=== PATIENT | female | born 1990 | race American Indian/Alaskan Native ===

== ENCOUNTER 2016-07-25 10:01 | Inpatient (IN) | payer BC, MEDICAID, OTHER ==
[2016-07-25] MEDS: Lactated Ringers 1,000 ML IV SCH ×2 (13:15→14:16)
[2016-07-25] MEDS ORDERED: Sodium Chloride 0.9% 10 ML Syringe FLUSH PRN (13:21)
[2016-07-25] MEDS ORDERED: Bupivacaine 0.75%/D5W 2 ML Amp INJECT ONE (13:25)
[2016-07-25] MEDS ORDERED: Morphine PF 10 MG/10 ML SDV EPIDUR ONE (13:25)
[2016-07-25] MEDS ORDERED: fentaNYL 100 MCG/2 ML SDV EPIDUR ONE (13:25)
[2016-07-25] MEDS ORDERED: Naltrexone 50 MG Tab PO PRN (13:51)
[2016-07-25] MEDS ORDERED: Famotidine/Normal Saline 20 MG in Premix Bag 50 BAG IV PRN (13:51)
[2016-07-25] MEDS ORDERED: Nalbuphine 10 MG/1 ML Vial IVPUSH PRN (13:51)
[2016-07-25] MEDS ORDERED: diphenhydrAMINE 50 MG/ML SDV IV PRN (13:51)
[2016-07-25] MEDS ORDERED: Promethazine 12.5 MG in Sodium Chloride 0.9% 50 ML IV PRN (13:51)
[2016-07-25] MEDS ORDERED: Ondansetron 4 MG/2 ML SDV IVPUSH PRN (13:51)
[2016-07-25] MEDS ORDERED: diphenhydrAMINE 50 MG/ML SDV IVPUSH PRN (13:51)
[2016-07-25] MEDS ORDERED: Naloxone 0.4 MG/ML SDV IVPUSH PRN (13:51)
[2016-07-25] MEDS ORDERED: Scopolamine 1.5 MG Transdermal Patch TOP ONE (13:51)
[2016-07-25] MEDS ORDERED: ePHEDrine 50 MG/ML SDV IVPUSH PRN (13:51)
[2016-07-25] MEDS ORDERED: Promethazine 6.25 MG in Sodium Chloride 0.9% 50 ML IV PRN (13:51)
[2016-07-25] MEDS ORDERED: Lactated Ringers 500 ML IV SCH ×2 (14:00)
[2016-07-25] MEDS ORDERED: Lidocaine 1% 20 ML MDV INJECT ONE (18:30)
[2016-07-25] MEDS ORDERED: Oxytocin 10 Units/1 ML SDV IV ONE (18:40)
[2016-07-25] MEDS ORDERED: Acetaminophen/Codeine 300-30 MG Tab PO PRN (19:05)
[2016-07-25] MEDS: Ibuprofen 800 MG Tab PO SCH (21:36)
[2016-07-26] MEDS: Prenatal Multivitamin with Calcium/Folic Acid/Fe Fumarate Cap PO SCH (09:55)
[2016-07-26] MEDS: Ibuprofen 800 MG Tab PO SCH ×2 (09:55→17:30)
--- NOTE | 2016-07-26 10:35 | PN ---
DATE SEEN: 07/26/2016 SUBJECTIVE: Armani Schroeder is a 26-year-old, female, 1 day . Up, ambulating, and doing well. Minimal cramps, minimal discomfort. Lochia and flow have been moderate, has been up in the tub without difficulty. Pain has been controlled. OBJECTIVE: Exam shows uterus U-2. Tone satisfactory. Perineum intact. Minimal ecchymoses. LABORATORY DATA: hemoglobin and hematocrit are 9.8/30.1. ASSESSMENT: 1. day 1, no problems. 2. Moderate anemia, asymptomatic. 3. Perineum healing without difficulty. PLAN: Routine course, delivered late in the day. Plan to discharge 07/27/2016. /[id number] JACY/MAYRA
--- NOTE | 2016-07-26 12:40 | HP ---
ADMISSION DATE: 07/25/2016 LABOR AND DELIVERY NOTE: Armani Schroeder is a 26-year-old female, admitted to [facility] in early labor. Fuad off and on for the last couple of days duration. Labor began in earnest. On admission, there was satisfactory heart tones, category one, initial dilatation uncertain, "70%" effaced, but dilatation unknown by nursing staff. Thought to be in early labor. Re-examination revealed progressive labor, routine contractions at 3-minute intervals, satisfactory well being, category one, and now found to be 4 cm dilated. Membranes were intact. Group B rectovaginal culture was negative. Anesthesia was consulted and intrathecal was placed with good analgesic benefit. Dilatation was progressive and appropriate about 1 cm per hour. When seen by myself at 1730 hours, she was 9 cm, vertex presentation, presenting part head, and amniotics performed with clear fluid. Labor continued in earnest. Intrathecal was provided, less and less benefit, the patient tolerated it well. She finally went to complete. Second stage of labor with advancing maternal effort was successful. Over the course of 45 minutes, brought the baby down against the perineum. The perineum was inadequate, infiltrated with 2% lidocaine. A midline episiotomy was performed. Therefore, with next contraction in rotation from OSCAR to THOMAS presentation. Both nose and oropharynx were suctioned, a snug nuchal cord was reduced without difficulty, child was delivered without dystocia. Male infant, weight 7 pounds 12 ounces, score 8 and 9. The child was placed on mom's tummy for warming and resuscitation, cord was palpated and stripped toward the baby, cord had good pulsation and was cut, grandmother in attendance. Three-cord vessel identified. Routine resuscitation. Midline episiotomy, which showed no extension, was re-infiltrated with lidocaine, and repaired in complex fashion with 2-0 chromic suture. Surgical results were excellent. Blood loss 150 mL. Urethra and clitoris were examined. Cervix was identified and was free of lesion. Rectal exam revealed intact rectal anatomy. ASSESSMENT: 1. Term . 2. Spontaneous labor. 3. Intrathecal analgesia. 4. Midline episiotomy, no extension. 5. A 7-pound 12-ounce male , score 8 and 9. 6. Nutrition, planned nursing. PLAN: Routine course. Expect no problems or concerns. Proceed accordingly. /[id number] JACY/MAYRA
[2016-07-27] MEDS: Ibuprofen 800 MG Tab PO SCH ×2 (01:12→10:09)
[2016-07-27 01:34] VITALS: BP 111/65
[2016-07-27] MEDS: Prenatal Multivitamin with Calcium/Folic Acid/Fe Fumarate Cap PO SCH (10:09)
--- NOTE | 2016-07-28 04:39 | DISCH ---
DISCHARGE DATE: 07/27/2016 HISTORY: Armani Schroeder is a 26-year-old, 2, para 2, female, two days . Up, ambulating, and doing well. Lochia is moderate. Flow was minimal, nursing is going better. Noted some engorgement. Pain has been controlled. On exam, U-3 tone satisfactory, perineum intact. ASSESSMENT: 1. day 2, no complaints or concerns. Stable hemoglobin 9.8. 2. Nursing nutrition. PLAN: Discharge home with lengthy instructions, recommendations and care, the patient is comfortable with discharge appointment at 6 weeks. /[id number] JACY/MAYRA
== END 2016-07-27 11:40 | disposition home or self-care (01) | DRG 560 ==
LOC: FB.OBCHECK 10:01 → FB.OB 10:03 → FB.OBCHECK 10:10 → FB.OB 10:10
PROVIDERS: ADMIT Family Medicine; ATTEND Family Medicine
PROC: 00HU33Z Insertion of Infusion Device into Spinal Canal, Percutaneous Approach (ICD-10-PCS; 2016-07-25)
PROC: 10E0XZZ Delivery of Products of Conception, External Approach (ICD-10-PCS; principal; 2016-07-26)
PROC: 10907ZC Drainage of Amniotic Fluid, Therapeutic from Products of Conception, Via Natural or Artificial Opening (ICD-10-PCS; 2016-07-26)
PROC: 0W8NXZZ Division of Female Perineum, External Approach (ICD-10-PCS; 2016-07-26)
DX: O69.81X0 Labor and delivery complicated by cord around neck, without compression, not applicable or unspecified (principal); Z3A.00 Weeks of gestation of pregnancy not specified; Z37.0 Single live birth
CPT/HCPCS: 36415; 85014; 85018; 99211; A9270-GY; J2270; J2590; J3010; J7120

== ENCOUNTER 2017-05-23 19:33 | Emergency (ER) | payer BC, MEDICAID, OTHER ==
[2017-05-23] MEDS ORDERED: Ondansetron 8 MG Tab.DIS PO ONE (19:41)
[2017-05-23 19:48] VITALS: BP 131/89
--- NOTE | 2017-05-23 19:50 | EDM.PDOC ---
ED HPI GENERAL MEDICAL PROBLEM - General Stated Complaint: FLU SYMPTOMS Time Seen by Provider: 05/23/17 19:33 Source of Information: Reports: Patient, Family History Limitations: Reports: No Limitations - History of Present Illness INITIAL COMMENTS - FREE TEXT/NARRATIVE: 27 y.o.w.f -breast feeding- came to the ed with her mom due to F/C for 1 week off/on. 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 Her temp was 98.6 on arrival. Pt was shivering stating she feels cold. Warm plankets were give and she felt immediately better. She stated as well, she has gen bodyache, joint aches which comes and goes. No Trauma, no sick contact. Pt is able to eat and drink. She said her "heart us pounding" BP 131/89 pulse 82 Temp 37.0 pulse ox 98% on RA Onset Date: 05/20/17 Onset Time: 08:00 Duration: Day(s): Location: Reports: Generalized Quality: Reports: Same as Previous Episode, Other (gen bodyache) Severity: Mild Improves with: Reports: Heat Therapy, Rest Worsens with: Reports: Movement Context: Reports: Other (chills off and on for 1 week, ) Associated Symptoms: Reports: Fever/Chills (1 week) Treatments FLAME HARDENER: Reports: Acetaminophen body Pain Score (Numeric/FACES): 6 - Related Data Allergies Allergy/AdvReac Type Severity Reaction Status Date / Time No Known Allergies Allergy Verified 05/23/17 19:44 Home Meds: Home Meds Ondansetron [Zofran ODT] 4 mg PO Q6H PRN #20 tab.dis 05/23/17 [Rx] Past Medical History - Past Health History Medical/Surgical History: Denies Medical/Surgical History HEENT History: Reports: Impaired Vision Other HEENT History: BRONCHITIS Other Cardiovascular History: palpitations Respiratory History: Reports: Pneumonia, Recurrent 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: Psychiatric History: Reports: Anxiety, Depression Other Psychiatric History: hx cutting Other Dermatologic History: eczema - Past Surgical History HEENT Surgical History: Reports: None Respiratory Surgical History: Reports: None GI Surgical History: Reports: None Dermatological Surgical History: Reports: None Social & Family History - Family History Family Medical History: Noncontributory Cardiac: Reports: Afib, [place] Respiratory: Reports: Asthma OBGYN: Reports: Musculoskeletal: Reports: Fibromyalgia, Osteoporosis Psychiatric: Reports: Bipolar, Depression Endocrine/Metabolic: Reports: Diabetes, type II Hematologic: Reports: Other (See Below) Other Hematologic Family History: antigen karla - Tobacco Use Smoking Status *Q: Never Smoker Years of Tobacco use: 2 Used Tobacco, but Quit: Yes Month Tobacco Last Used: 06/27/12 Second Hand Smoke Exposure: No - Caffeine Use Caffeine Use: Reports: None - Alcohol Use Days Per Week of Alcohol Use: 0 Number of Drinks Per Day: 1 Total Drinks Per Week: 0 - Recreational Drug Use Recreational Drug Use: No Drug Use in Last 12 Months: Yes Recreational Drug Type: Reports: Marijuana/Hashish, Methamphetamine, Oxycodone, Other (see below) Recreational Drug Use Frequency: Binges Recreational Drug Last Use: 3days ago ED ROS GENERAL - Review of Systems Review Of Systems: See Below Constitutional: Reports: Other (f/c) HEENT: Reports: No Symptoms Respiratory: Reports: No Symptoms Cardiovascular: Reports: No Symptoms Endocrine: Reports: No Symptoms GI/Abdominal: Reports: No Symptoms : Reports: No Symptoms Musculoskeletal: Reports: No Symptoms Skin: Reports: No Symptoms Neurological: Reports: No Symptoms Psychiatric: Reports: No Symptoms Hematologic/Lymphatic: Reports: No Symptoms Immunologic: Reports: No Symptoms ED EXAM, GENERAL - Physical Exam Exam: See Below Exam Limited By: No Limitations General Appearance: Alert, WD/WN, Mild Distress Eye Exam: Bilateral Eye: Normal Inspection Ears: Normal External Exam Ear Exam: Bilateral Ear: Auricle Normal Nose: Normal Inspection, Normal Mucosa Throat/Mouth: Normal Inspection, Normal Lips, Normal Teeth Head: Atraumatic, Normocephalic Neck: Normal Inspection, Supple, Non-Tender, Full Range of Motion Respiratory/Chest: No Respiratory Distress, Lungs Clear, Normal Breath Sounds, No Accessory Muscle Use Cardiovascular: Normal Peripheral Pulses, Regular Rate, Rhythm, No Edema, No Gallop, No JVD, No Murmur, No Rub Peripheral Pulses: 1+: Radial (L) GI/Abdominal: Normal Bowel Sounds, Soft, Non-Tender (Female) Exam: Deferred Rectal (Female) Exam: Deferred Back Exam: Normal Inspection, Full Range of Motion Extremities: Normal Inspection, Normal Range of Motion, Non-Tender, No Pedal Edema Neurological: Alert, Oriented, CN II-XII Intact, Normal Cognition, Normal Gait, No Motor/Sensory Deficits Psychiatric: Normal Affect, Normal Mood Skin Exam: Warm, Dry, Intact, Normal Color, No Rash Lymphatic: No Adenopathy Course - Vital Signs Text/Narrative:: 27 y.o.w.f -breast feeding- came to the ed with her mom due to F/C for 1 week off/on. 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 Her temp was 98.6 on arrival. Pt was shivering stating she feels cold. Warm plankets were give and she felt immediately better. She stated as well, she has gen bodyache, joint aches which comes and goes. No Trauma, no sick contact. Pt is able to eat and drink. She said her "heart us pounding" No Dysuria. BP 131/89 pulse 82 Temp 37.0 pulse ox 98% on RA PE: WNWD W F with occ shivering with H/O N/V/D Labs: Not indicated Impression: Viral syndrome Tx: Zofran. Reexam: Pt was doing fine here in the ed, no N/V/D since here in the ED Plan: D/C with instructions Last Recorded V/S: Last Vital Signs Temp 37.0 C 05/23/17 19:40 Pulse 86 05/23/17 19:40 Resp 18 05/23/17 19:40 BP 131/89 05/23/17 19:40 Pulse Ox 99 05/23/17 19:40 - Orders/Labs/Meds Meds: Medications Discontinued Medications Generic Name Dose Route Start Last Admin Trade Name Freq PRN Reason Stop Dose Admin Ondansetron HCl 8 mg 05/23/17 19:41 05/23/17 19:51 Zofran Odt PO 05/23/17 19:42 8 mg ONETIME ONE Administration Departure - Departure Time of Disposition: 20:39 Disposition: Home, Self-Care 01 Condition: Good Clinical Impression: Viral syndrome - Discharge Information Prescriptions: Ondansetron [Zofran ODT] 4 mg PO Q6H PRN #20 tab.dis PRN Reason: Nausea Referrals: Casimiro Andujar MD [Primary Care Provider] - Forms: ED Department Discharge Additional Instructions: Please increase warm fluid intake, no caffeine, Motrine, tylenol for pain and temp above 100F. Please f/u, come back if your symptoms get worse acutely
== END 2017-05-23 20:45 | disposition home or self-care (01) ==
LOC: FB.ED 19:33
DX: B34.9 Viral infection, unspecified (principal); Z87.891 Personal history of nicotine dependence
CPT/HCPCS: 87804; 99283; A9270

== ENCOUNTER 2017-06-28 02:35 | Emergency (ER) | payer OTHER ==
[2017-06-28 03:17] VITALS: BP 139/91
[2017-06-28] MEDS ORDERED: Ondansetron 8 MG Tab.DIS PO ONE (03:40)
[2017-06-28] MEDS ORDERED: Aluminum Hydroxide/Magnesium Hydroxide Susp 30 ML Cup PO STA (03:41)
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
[2017-06-28] MEDS: Alum Hydroxide/Mag Hydroxide 15 ML, Lidocaine 2% 15 ML PO ONE ×2 (03:51)
== END 2017-06-28 04:28 | disposition home or self-care (01) ==
LOC: FB.ED 02:35
DX: K29.20 Alcoholic gastritis without bleeding (principal); Z79.899 Other long term (current) drug therapy; Z87.01 Personal history of pneumonia (recurrent)
CPT/HCPCS: 99284; A9270

== ENCOUNTER 2017-06-28 05:41 | Emergency (ER) | payer SELFPAY ==
[2017-06-28] MEDS ORDERED: ALPRAZolam 0.25 MG Tab PO ONE (05:54)
[2017-06-28] MEDS ORDERED: Alum Hydroxide/Mag Hydroxide 15 ML, Lidocaine 2% 15 ML PO ONE ×2 (05:54)
[2017-06-28 07:02] VITALS: BP 127/76
--- NOTE | 2017-06-28 07:08 | EDM.PDOC ---
ED HPI GENERAL MEDICAL PROBLEM - General Chief Complaint: Behavioral/Psych Stated Complaint: CHEST PAIN Time Seen by Provider: 06/28/17 05:43 Source of Information: Reports: Patient History Limitations: Reports: Intoxication - History of Present Illness INITIAL COMMENTS - FREE TEXT/NARRATIVE: 27 y.o.w.f was seen a few hours by myself for ETOH and epigastric pain. Pt received zofran and GI cocktail after which her symptoms subsided. Pt came back a few hours later with same-epigastric pain, requesting another GI cocktail. 135 /67 Pulse 113 Temp 36.3 RR 17 O2 sat 97% on RA Onset Date: 06/28/17 Onset Time: 02:00 Duration: Hour(s):, Intermittent Location: Reports: Generalized Quality: Reports: Other (intoxicated) Severity: Moderate Improves with: Reports: Other (not drinking) Worsens with: Reports: Other (drinking) Context: Reports: Other (ETOH abuse) Associated Symptoms: Reports: No Other Symptoms Epigastric region Pain Score (Numeric/FACES): 0 - Related Data Allergies Allergy/AdvReac Type Severity Reaction Status Date / Time No Known Allergies Allergy Verified 06/28/17 05:55 Home Meds: Home Meds Albuterol [IMW: Albuterol HFA] 2 puff .XX Q4H PRN 06/28/17 [History] Pantoprazole Sodium [Protonix] 40 mg PO DAILY #20 tablet.dr 06/28/17 [Rx] Past Medical History - Past Health History Medical/Surgical History: Denies Medical/Surgical History HEENT History: Reports: Impaired Vision Other HEENT History: BRONCHITIS Cardiovascular History: Reports: Other (See Below) Other Cardiovascular History: palpitations Respiratory History: Reports: Pneumonia, Recurrent Gastrointestinal History: Reports: Gastritis DIRECTOR HRIS History: 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 Has not used drug since 2011, was in tx @ that time for drug addiction. Has been drinking daily approx 8 beers for past 5-6 months. Other Dermatologic History: eczema - Past Surgical History HEENT Surgical History: Reports: None Respiratory Surgical History: Reports: None GI Surgical History: Reports: None, Colonoscopy, EGD Dermatological Surgical History: Reports: None Social & Family History - Family History Family Medical History: Noncontributory Cardiac: Reports: Afib, [place] Respiratory: Reports: Asthma OBGYN: Reports: Musculoskeletal: Reports: Fibromyalgia, Osteoporosis Psychiatric: Reports: Bipolar, Depression Endocrine/Metabolic: Reports: Diabetes, type II Hematologic: Reports: Other (See Below) Other Hematologic Family History: antigen karla - Tobacco Use Smoking Status *Q: Former Smoker Years of Tobacco use: 10 Used Tobacco, but Quit: Yes Month Tobacco Last Used: unknown Second Hand Smoke Exposure: No - Caffeine Use Caffeine Use: Reports: None - Alcohol Use Days Per Week of Alcohol Use: 7 Number of Drinks Per Day: 8 Total Drinks Per Week: 56 - Recreational Drug Use Recreational Drug Use: Yes Drug Use in Last 12 Months: No Recreational Drug Type: Reports: Marijuana/Hashish, Methamphetamine Other Recreational Drug Type: Has been in tx for drug abuse in 2011, hasn't used since then. Recreational Drug Use Frequency: Binges Recreational Drug Last Use: 3days ago ED ROS GENERAL - Review of Systems Review Of Systems: See Below Constitutional: Reports: No Symptoms HEENT: Reports: No Symptoms Respiratory: Reports: No Symptoms Cardiovascular: Reports: No Symptoms Endocrine: Reports: No Symptoms GI/Abdominal: Reports: No Symptoms : Reports: No Symptoms Musculoskeletal: Reports: No Symptoms Skin: Reports: No Symptoms Neurological: Reports: No Symptoms Psychiatric: Reports: No Symptoms Hematologic/Lymphatic: Reports: No Symptoms Immunologic: Reports: No Symptoms ED EXAM, NEURO - Physical Exam Exam: See Below Exam Limited By: Intoxication General Appearance: Alert, WD/WN, No Apparent Distress Eye Exam: Bilateral Eye: Normal Inspection Ears: Normal External Exam, Normal Canal Nose: Normal Inspection Throat/Mouth: Normal Inspection, Normal Lips Head Exam: Atraumatic, Normocephalic Neck: Normal Inspection, Supple Respiratory/Chest: No Respiratory Distress, Lungs Clear Cardiovascular: Normal Peripheral Pulses, Regular Rate, Rhythm, No Edema GI/Abdominal: Normal Bowel Sounds, Tender (epigastric) (Female) Exam: Deferred Rectal (Female) Exam: Deferred Neurological: Alert, Normal Mood/Affect, Normal Dorsiflexion, CN II-XII Intact, Normal Gait, Oriented x 3 Back Exam: Normal Inspection, Full Range of Motion Extremities: Normal Inspection, Normal Range of Motion, Non-Tender, No Pedal Edema, Normal Capillary Refill Psychiatric: Normal Affect, Normal Mood Skin Exam: Warm, Dry, Intact, Normal Color, No Rash Course - Vital Signs Text/Narrative:: 27 y.o.w.f was seen a few hours by myself for ETOH and epigastric pain. Pt received zofran and GI cocktail after which her symptoms subsided. Pt came back a few hours later with same-epigastric pain, requesting another GI cocktail. 135 /67 Pulse 113 Temp 36.3 RR 17 O2 sat 97% on RA PE: Epigastric pain Impression: etoh gasytritis, anxiety Tx: Xanax, GI cocktail Reexam: Improved Plan: D/C with instruction Last Recorded V/S: Last Vital Signs Temp 36.3 C 06/28/17 05:43 Pulse 117 H 06/28/17 05:43 Resp 18 06/28/17 06:55 BP 127/76 06/28/17 06:55 Pulse Ox 100 06/28/17 06:55 - Orders/Labs/Meds Meds: Medications Discontinued Medications Generic Name Dose Route Start Last Admin Trade Name Christiano PRN Reason Stop Dose Admin Alprazolam 0.25 mg 06/28/17 05:54 06/28/17 06:08 Xanax PO 06/28/17 05:55 0.25 mg ONETIME ONE Administration Al Hydroxide/Mg Hydroxide 15 0 ml 06/28/17 05:54 06/28/17 06:08 ml/ Lidocaine HCl 15 ml PO 06/28/17 05:55 15 ml ONETIME ONE Administration Departure - Departure Time of Disposition: 07:06 Disposition: Home, Self-Care 01 Condition: Good Clinical Impression: ETOH abuse - Discharge Information Instructions: Gastritis, Adult, [id number], Delirium Tremens, [id number] Referrals: Casimiro Andujar MD [Primary Care Provider] - Forms: ED Department Discharge Additional Instructions: please stay away from alcohol, follow up with the instructions given at your previous visit today.
== END 2017-06-28 07:15 | disposition home or self-care (01) ==
LOC: FB.ED 05:41
DX: F10.10 Alcohol abuse, uncomplicated (principal); K29.20 Alcoholic gastritis without bleeding; Z79.899 Other long term (current) drug therapy; Z87.01 Personal history of pneumonia (recurrent)
CPT/HCPCS: 99284; A9270

== ENCOUNTER 2017-12-03 13:08 | Emergency (ER) | payer OTHER ==
--- NOTE | 2017-12-03 13:39 | EDM.PDOC ---
ED HPI GENERAL MEDICAL PROBLEM - General Chief Complaint: Cardiovascular Problem Stated Complaint: HEART RACING, Time Seen by Provider: 12/03/17 13:19 Source of Information: Reports: Patient History Limitations: Reports: No Limitations - History of Present Illness INITIAL COMMENTS - FREE TEXT/NARRATIVE: 27 y.o. female came to the ed due to off and on palpitations. Her heart is racing for a few hours, then goes back to nl. No Dizziness associated with it. She as occ Chest wall pain, for which she take Motrin. Right now, she is in her usual state of health. 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 Pain Score (Numeric/FACES): 6 mid chest Pain Score (Numeric/FACES): 0 - Related Data Allergies Allergy/AdvReac Type Severity Reaction Status Date / Time No Known Allergies Allergy Verified 06/28/17 05:55 Home Meds: Home Meds Amoxicillin 500 mg PO ASDIRECTED 12/03/17 [History] Past Medical History - Past Health History Medical/Surgical History: Denies Medical/Surgical History HEENT History: Reports: Impaired Vision Other HEENT History: BRONCHITIS Cardiovascular History: Reports: Other (See Below) Other Cardiovascular History: palpitations Respiratory History: Reports: Pneumonia, Recurrent Gastrointestinal History: Reports: Gastritis 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 Has not used drug since 2011, was in tx @ that time for drug addiction. Has been drinking daily approx 8 beers for past 5-6 months. Other Dermatologic History: eczema - Past Surgical History HEENT Surgical History: Reports: None Respiratory Surgical History: Reports: None GI Surgical History: Reports: None, Colonoscopy, EGD Dermatological Surgical History: Reports: None Social & Family History - Family History Family Medical History: Noncontributory Cardiac: Reports: Afib, [place] Respiratory: Reports: Asthma OBGYN: Reports: Musculoskeletal: Reports: Fibromyalgia, Osteoporosis Psychiatric: Reports: Bipolar, Depression Endocrine/Metabolic: Reports: Diabetes, type II Hematologic: Reports: Other (See Below) Other Hematologic Family History: antigen karla - Caffeine Use Caffeine Use: Reports: None ED ROS GENERAL - Review of Systems Review Of Systems: See Below Constitutional: Reports: No Symptoms HEENT: Reports: No Symptoms Respiratory: Reports: No Symptoms Cardiovascular: Reports: No Symptoms Endocrine: Reports: No Symptoms GI/Abdominal: Reports: No Symptoms : Reports: No Symptoms Musculoskeletal: Reports: No Symptoms Skin: Reports: No Symptoms Neurological: Reports: No Symptoms Psychiatric: Reports: No Symptoms Hematologic/Lymphatic: Reports: No Symptoms Immunologic: Reports: No Symptoms ED EXAM, GENERAL - Physical Exam Exam: See Below Exam Limited By: No Limitations General Appearance: Alert, WD/WN, No Apparent Distress Eye Exam: Bilateral Eye: Normal Inspection Ears: Normal External Exam Ear Exam: Bilateral Ear: Auricle Normal Nose: Normal Inspection, Normal Mucosa Throat/Mouth: Normal Inspection, Normal Lips, Normal Teeth, Normal Gums, Normal Voice, No Airway Compromise Head: Atraumatic, Normocephalic Neck: Normal Inspection, Supple, Non-Tender, Full Range of Motion Respiratory/Chest: No Respiratory Distress, Lungs Clear, Normal Breath Sounds, Chest Non-Tender Cardiovascular: Normal Peripheral Pulses, Regular Rate, Rhythm, No Edema, No Gallop, No JVD, No Murmur, No Rub GI/Abdominal: Normal Bowel Sounds, Soft, Non-Tender, No Organomegaly (Female) Exam: Deferred Rectal (Female) Exam: Deferred Back Exam: Normal Inspection, Full Range of Motion Extremities: Normal Inspection, Normal Range of Motion, Non-Tender Neurological: Alert, Oriented, CN II-XII Intact, Normal Cognition, Normal Gait Psychiatric: Normal Affect Skin Exam: Warm, Dry, Intact, Normal Color Lymphatic: No Adenopathy Course - Vital Signs Text/Narrative:: 27 y.o. female came to the ed due to off and on palpitations. Her heart is racing for a few hours, then goes back to nl. No Dizziness associated with it. She as occ Chest wall pain, for which she take Motrin. Right now, she is in her usual state of health. BP 135/93 RR 28 Pulse 91 Temp 36.8 PE: WNWD F with palpitations and occ C/P, now in her usual state of health Labs/Imaging: Not indicated Impression: Palpitations, H/O Toothache, Atypical chest pain Tx: None Plan: D/C with instructions Last Recorded V/S: Last Vital Signs Temp 37.1 C 12/03/17 13:30 Pulse 84 12/03/17 13:30 Resp 19 12/03/17 13:30 BP 128/81 12/03/17 13:30 Pulse Ox 99 12/03/17 13:30 Departure - Departure Time of Disposition: 13:39 Disposition: Home, Self-Care 01 Condition: Good Clinical Impression: Intermittent palpitations Instructions: Palpitations, [id number] Referrals: Casimiro Andujar MD [Primary Care Provider] - Forms: ED Department Discharge Additional Instructions: Please f/u with your Doctor this week, please come back if your symptoms get worse acutely.
[2017-12-03 13:57] VITALS: BP 128/81
== END 2017-12-03 13:45 | disposition home or self-care (01) ==
LOC: FB.ED 13:08
DX: R07.89 Other chest pain (principal); R00.2 Palpitations
CPT/HCPCS: 99283

== ENCOUNTER 2018-07-15 12:11 | Emergency (ER) | payer OTHER ==
[2018-07-15] MEDS ORDERED: LORazepam 2 MG/ML SDV IVPUSH ONE ×2 (12:25→12:30)
[2018-07-15] MEDS: Sodium Chloride 0.9% 10 ML Syringe FLUSH PRN ×2 (12:31→14:51)
[2018-07-15] MEDS ORDERED: Sodium Chloride 0.9% 1,000 ML IV ONE (12:34)
--- NOTE | 2018-07-15 12:36 | EDM.PDOC ---
ED HPI GENERAL MEDICAL PROBLEM - General Chief Complaint: Respiratory Problem Stated Complaint: SOB CHESTPAIN Time Seen by Provider: 07/15/18 12:31 Source of Information: Reports: Patient History Limitations: Reports: No Limitations - History of Present Illness INITIAL COMMENTS - FREE TEXT/NARRATIVE: Presents with sudden onset rapid heart rate, substernal non radiating chest pressure and shortness of breath 30 minutes prior to arrival while showering. Took a clonazepam without improvement. Similar episodes in the past, thought to be due to anxiety. Admits to being under a significant amount of stress and feels anxious. Onset: Today, Sudden Onset Date: 07/15/18 Onset Time: 12:00 Location: Reports: Chest Associated Symptoms: Reports: Shortness of Breath - Related Data Allergies Allergy/AdvReac Type Severity Reaction Status Date / Time No Known Allergies Allergy Verified 07/15/18 12:21 Home Meds: Home Meds Metoprolol Succinate [Toprol XL] 25 mg PO DAILY #15 tab.er 07/15/18 [Rx] Past Medical History HEENT History: Reports: Impaired Vision Other HEENT History: BRONCHITIS Cardiovascular History: Reports: Other (See Below) Other Cardiovascular History: palpitations Respiratory History: Reports: Pneumonia, Recurrent Gastrointestinal History: Reports: Gastritis 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 Has not used drug since 2011, was in tx @ that time for drug addiction. Has been drinking daily approx 8 beers for past 5-6 months. Other Dermatologic History: eczema - Past Surgical History HEENT Surgical History: Reports: None Respiratory Surgical History: Reports: None GI Surgical History: Reports: None, Colonoscopy, EGD Dermatological Surgical History: Reports: None Social & Family History - Family History Family Medical History: Noncontributory Cardiac: Reports: Afib, [place] Respiratory: Reports: Asthma OBGYN: Reports: Musculoskeletal: Reports: Fibromyalgia, Osteoporosis Psychiatric: Reports: Bipolar, Depression Endocrine/Metabolic: Reports: Diabetes, type II Hematologic: Reports: Other (See Below) Other Hematologic Family History: antigen karla - Tobacco Use Smoking Status *Q: Never Smoker - Caffeine Use Caffeine Use: Reports: None - Alcohol Use Alcohol Use in Last Twelve Months: Yes Alcohol Use Frequency: Socially - Recreational Drug Use Recreational Drug Use: No ED ROS GENERAL - Review of Systems Review Of Systems: ROS reveals no pertinent complaints other than HPI. ED EXAM, GENERAL - Physical Exam Exam: See Below Exam Limited By: No Limitations General Appearance: Alert, WD/WN, No Apparent Distress Nose: Normal Inspection Throat/Mouth: No Airway Compromise Head: Atraumatic, Normocephalic Neck: Normal Inspection Respiratory/Chest: No Respiratory Distress, Lungs Clear, Normal Breath Sounds Cardiovascular: No Murmur, Tachycardia GI/Abdominal: No Distention Extremities: Normal Range of Motion Neurological: Alert, Oriented, Normal Cognition, No Motor/Sensory Deficits Skin Exam: Warm, Dry, Intact EKG INTERPRETATION EKG Date: 07/15/18 Time: 12:36 Rhythm: Other (sinus tachycardia) Rate (Beats/Min): 117 Pierson: Normal P-Wave: Present QRS: Normal ST-T: Normal QT: Normal Course - Vital Signs Last Recorded V/S: Last Vital Signs Temp 36.3 C 07/15/18 12:15 Pulse 92 07/15/18 15:12 Resp 17 07/15/18 14:00 BP 119/72 07/15/18 15:12 Pulse Ox 99 07/15/18 14:00 - Orders/Labs/Meds Orders: Active Orders 24 hr Category Date Time Status Ang Chest [CT] Stat Exams 07/15/18 13:21 Taken Chest 1V Frontal [CR] Stat Exams 07/15/18 12:23 Taken Sodium Chloride 0.9% [Saline Flush] Med 07/15/18 12:24 Active 10 ml FLUSH ASDIRECTED PRN Saline Lock Insert [OM.PC] Routine Oth 07/15/18 12:24 Ordered EKG 12 Lead [EK] Stat Ther 07/15/18 12:23 Ordered Medication Orders Sodium Chloride (Saline Flush) 10 ml FLUSH ASDIRECTED PRN PRN Reason: Keep Vein Open Last Admin: 07/15/18 14:51 Dose: 10 ml Admin: 07/15/18 12:31 Dose: 10 ml Labs: Laboratory Tests 07/15/18 07/15/18 07/15/18 Range/Units 12:34 12:34 12:34 WBC 5.9 (4.5-12.0) X10-3/uL RBC 4.58 (3.23-5.20) x10(6)uL Hgb 13.4 D (11.5-15.5) g/dL Hct 40.1 D (30.0-51.3) % MCV 87.7 (80-96) fL MCH 29.3 (27.7-33.6) pg MCHC 33.5 (32.2-35.4) g/dL RDW 13.2 (11.5-15.5) % Plt Count 311 (125-369) X10(3)uL MPV 7.8 (7.4-10.4) fL Neut % (Auto) 71.5 (46-82) % Lymph % (Auto) 22.7 (13-37) % Waller % (Auto) 4.8 (4-12) % Eos % (Auto) 0 L (1.0-5.0) % Baso % (Auto) 1 (0-2) % Neut # (Auto) 4.3 (1.6-8.3) # Lymph # (Auto) 1.3 (0.6-5.0) # Waller # (Auto) 0.3 (0.0-1.3) # Eos # (Auto) 0.0 (0.0-0.8) # Baso # (Auto) 0.0 (0.0-0.2) # PT 9.8 (8.7-11.1) INR 1.01 (0.89-1.13) APTT 28.0 (24.4-33.2) SECONDS D-Dimer, Quantitative 1.01 H (0.0-0.59) mg/LFEU Sodium 136 (135-145) mmol/L Potassium 3.5 (3.5-5.3) mmol/L Chloride 100 (100-110) mmol/L Carbon Dioxide 25 (21-32) mmol/L BUN 9 (7-18) mg/dL Creatinine 0.7 (0.55-1.02) mg/dL Est Cr Clr Drug Dosing 113.01 mL/min Estimated GFR (MDRD) > 60 (>60) BUN/Creatinine Ratio 12.9 (9-20) Glucose 101 (80-116) mg/dL Calcium 9.2 (8.6-10.2) mg/dL Magnesium (1.8-2.5) mg/dL Total Bilirubin 0.3 (0.1-1.3) mg/dL AST 42 H (5-25) IU/L ALT 30 (12-36) U/L Alkaline Phosphatase 106 (56-112) IU/L Troponin I (<0.017-0.056) ng/mL Total Protein 8.1 H (6.0-8.0) g/dL Albumin 3.6 (3.5-5.2) g/dL Globulin 4.5 g/dL Albumin/Globulin Ratio 0.8 TSH, Ultra Sensitive (0.36-3.74) IU/mL 07/15/18 07/15/18 07/15/18 Range/Units 12:34 12:34 12:34 WBC (4.5-12.0) X10-3/uL RBC (3.23-5.20) x10(6)uL Hgb (11.5-15.5) g/dL Hct (30.0-51.3) % MCV (80-96) fL MCH (27.7-33.6) pg MCHC (32.2-35.4) g/dL RDW (11.5-15.5) % Plt Count (125-369) X10(3)uL MPV (7.4-10.4) fL Neut % (Auto) (46-82) % Lymph % (Auto) (13-37) % Waller % (Auto) (4-12) % Eos % (Auto) (1.0-5.0) % Baso % (Auto) (0-2) % Neut # (Auto) (1.6-8.3) # Lymph # (Auto) (0.6-5.0) # Waller # (Auto) (0.0-1.3) # Eos # (Auto) (0.0-0.8) # Baso # (Auto) (0.0-0.2) # PT (8.7-11.1) INR (0.89-1.13) APTT (24.4-33.2) SECONDS D-Dimer, Quantitative (0.0-0.59) mg/LFEU Sodium (135-145) mmol/L Potassium (3.5-5.3) mmol/L Chloride (100-110) mmol/L Carbon Dioxide (21-32) mmol/L BUN (7-18) mg/dL Creatinine (0.55-1.02) mg/dL Est Cr Clr Drug Dosing mL/min Estimated GFR (MDRD) (>60) BUN/Creatinine Ratio (9-20) Glucose (80-116) mg/dL Calcium (8.6-10.2) mg/dL Magnesium 2.0 (1.8-2.5) mg/dL Total Bilirubin (0.1-1.3) mg/dL AST (5-25) IU/L ALT (12-36) U/L Alkaline Phosphatase (56-112) IU/L Troponin I < 0.017 L (<0.017-0.056) ng/mL Total Protein (6.0-8.0) g/dL Albumin (3.5-5.2) g/dL Globulin g/dL Albumin/Globulin Ratio TSH, Ultra Sensitive 1.57 (0.36-3.74) IU/mL Meds: Medications Generic Name Dose Route Start Last Admin Trade Name Freq PRN Reason Stop Dose Admin Sodium Chloride 10 ml 07/15/18 12:24 07/15/18 14:51 Saline Flush FLUSH 10 ml ASDIRECTED PRN Administration Keep Vein Open Discontinued Medications Generic Name Dose Route Start Last Admin Trade Name Freq PRN Reason Stop Dose Admin Sodium Chloride 1,000 mls @ 999 mls/hr 07/15/18 12:34 07/15/18 12:41 Normal Saline IV 07/15/18 13:34 999 mls/hr .BOLUS ONE Administration Iopamidol 75 ml 07/15/18 13:29 07/15/18 13:55 Isovue-370 (76%) IV 07/15/18 13:30 65 ml ASDIRECTED ONE Administration Lorazepam 1 mg 07/15/18 12:25 07/15/18 12:32 Ativan IVPUSH 07/15/18 12:26 Not Given ONETIME ONE Lorazepam 0.5 mg 07/15/18 12:30 07/15/18 15:13 Ativan IVPUSH 07/15/18 12:31 Not Given ONETIME ONE Metoprolol Succinate 25 mg 07/15/18 15:04 07/15/18 15:12 Toprol Xl PO 07/15/18 15:05 25 mg ONETIME ONE Administration Metoprolol Tartrate 2.5 mg 07/15/18 14:49 07/15/18 14:51 Lopressor IVPUSH 07/15/18 14:50 2.5 mg ONETIME ONE Administration - Radiology Interpretation Free Text/Narrative:: CXR: NAD CTA Chest: Suboptimal contrast bolus, no central pulmonary emboli, diffuse hepatic steatosis. - Re-Assessments/Exams Free Text/Narrative Re-Assessment/Exam: 07/15/18 15:21 Patient refused Ativan, HR 98 after Lopressor 2.5mg IV and 1L NS. Chest pain and shortness of breath have resolved. Departure - Departure Time of Disposition: 15:22 Disposition: Home, Self-Care 01 Condition: Good Clinical Impression: Palpitations - Discharge Information *PRESCRIPTION DRUG MONITORING PROGRAM REVIEWED*: No *COPY OF PRESCRIPTION DRUG MONITORING REPORT IN PATIENT GARRETT: Not Applicable Prescriptions: Metoprolol Succinate [Toprol XL] 25 mg PO DAILY #15 tab.er Referrals: Casimiro Andujar MD [Primary Care Provider] - 2 Days Forms: ED Department Discharge Additional Instructions: Fill prescription for Toprol and take as directed. Continue Clonazepam as needed. Follow up with your primary physician in 2 days. Call your Physician or Return to Emergency Department if: * Your condition worsens in any way. * You develop fever greater than 100.4. * You have vomitting that does not stop with medications. * You have pain that is not controlled with medications. - My Orders Last 24 Hours: My Active Orders 07/15/18 12:23 Chest 1V Frontal [CR] Stat EKG 12 Lead [EK] Stat 07/15/18 12:24 Sodium Chloride 0.9% [Saline Flush] 10 ml FLUSH ASDIRECTED PRN Saline Lock Insert [OM.PC] Routine 07/15/18 13:21 Ang Chest [CT] Stat - Assessment/Plan Last 24 Hours: My Active Orders 07/15/18 12:23 Chest 1V Frontal [CR] Stat EKG 12 Lead [EK] Stat 07/15/18 12:24 Sodium Chloride 0.9% [Saline Flush] 10 ml FLUSH ASDIRECTED PRN Saline Lock Insert [OM.PC] Routine 07/15/18 13:21 Ang Chest [CT] Stat
[2018-07-15] MEDS ORDERED: Iopamidol 755 Mg/ML 75 ML Bottle IV ONE (13:29)
[2018-07-15] MEDS ORDERED: Metoprolol Tartrate 5 MG/5 ML SDV IVPUSH ONE (14:49)
[2018-07-15] MEDS ORDERED: Metoprolol Succinate 25 MG Tab.ER PO ONE (15:04)
[2018-07-15 15:12] VITALS: BP 119/72
--- NOTE | 2018-07-16 12:33 | CR ---
INDICATION: Chest pain. CHEST: An AP portable upright view of the chest was obtained, compared with a PA view from 10/29/14, and shows evidence of a significant change in body habitus. Poor inspiration is suggested. The heart and mediastinum were unremarkable. A minimal dextroconvex scoliosis of the upper thoracic spine is suggested. No consolidating pneumonia or effusion was seen. However, markings are relatively heavy at the lung bases, apparently due to poor inspiration. IMPRESSION: No acute process. MTDD
== END 2018-07-15 15:50 | disposition home or self-care (01) ==
LOC: FB.ED 12:11
DX: R00.2 Palpitations (principal)
CPT/HCPCS: 36415; 71045; 71275; 80053; 83735; 84443; 84484; 85025; 85379; 85610; 85730; 93005; 96361; 96374; 99285; A9270-GY; J3490; J7030; Q9967

== ENCOUNTER 2018-08-02 14:15 | Emergency (ER) | payer OTHER ==
[2018-08-02] MEDS ORDERED: Sodium Chloride 0.9% 1,000 ML IV ONE (14:30)
[2018-08-02] MEDS ORDERED: Ondansetron 4 MG/2 ML SDV IVPUSH ONE (14:31)
[2018-08-02] MEDS ORDERED: Pantoprazole 40 MG Vial IVPUSH ONE (14:31)
--- NOTE | 2018-08-02 14:34 | EDM.PDOC ---
ED HPI GENERAL MEDICAL PROBLEM - General Stated Complaint: WEAK VOMITING Time Seen by Provider: 08/02/18 14:15 Source of Information: Reports: Patient History Limitations: Reports: No Limitations - History of Present Illness INITIAL COMMENTS - FREE TEXT/NARRATIVE: 28 y.o.w.f S/P Cholecystectomy a few years ago, came to the ED after 2 days of vomiting, every hour, unable to keep any food/fluid down. Denies , denies food poisoning. She complains of mid/mod epigastric discomfort. No Diarrhea, no dizziness but feels extremely weak. No Trauma. No Chest pain. No other acute medical issues. 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 Has not used drug since 2011, was in tx @ that time for drug addiction. Has been drinking daily approx 8 beers for past 5-6 months. Other Dermatologic History: eczema - Past Surgical History HEENT Surgical History: Reports: None Respiratory Surgical History: Reports: None GI Surgical History: Reports: None, Colonoscopy, EGD Dermatological Surgical History: Reports: None Social & Family History - Family History Family Medical History: Noncontributory Cardiac: Reports: Afib, [place] Respiratory: Reports: Asthma OBGYN: Reports: Musculoskeletal: Reports: Fibromyalgia, Osteoporosis Psychiatric: Reports: Bipolar, Depression Endocrine/Metabolic: Reports: Diabetes, type II Hematologic: Reports: Other (See Below) Other Hematologic Family History: antigen karla - Caffeine Use Caffeine Use: Reports: None ED ROS GENERAL - Review of Systems Review Of Systems: See Below Constitutional: Reports: Weakness HEENT: Reports: No Symptoms Respiratory: Reports: No Symptoms Cardiovascular: Reports: No Symptoms Endocrine: Reports: No Symptoms GI/Abdominal: Reports: Abdominal Pain (epigastric) : Reports: No Symptoms Musculoskeletal: Reports: No Symptoms Skin: Reports: No Symptoms Neurological: Reports: No Symptoms Psychiatric: Reports: No Symptoms Hematologic/Lymphatic: Reports: No Symptoms Immunologic: Reports: No Symptoms ED EXAM, GI/ABD - Physical Exam Exam: See Below Exam Limited By: No Limitations General Appearance: Alert, WD/WN, Mild Distress Eyes: Bilateral: Normal Appearance Ears: Normal External Exam Nose: Normal Inspection, Normal Mucosa, No Blood Throat/Mouth: Normal Lips, Normal Teeth, Normal Gums, Normal Voice, No Airway Compromise, Other (dry mucosal mmebranes) Head: Atraumatic, Normocephalic Neck: Normal Inspection, Supple, Non-Tender, Full Range of Motion Respiratory/Chest: No Respiratory Distress, Lungs Clear, Normal Breath Sounds Cardiovascular: Normal Peripheral Pulses, Regular Rate, Rhythm, No Edema, No Gallop, No JVD, No Murmur GI/Abdominal Exam: Normal Bowel Sounds, No Organomegaly, Tender (epigastric area ) (Female) Exam: Deferred Rectal (Female) Exam: Deferred Back Exam: Normal Inspection Extremities: Normal Inspection, Normal Range of Motion, Non-Tender, No Pedal Edema, Normal Capillary Refill Neurological: Alert, Oriented, CN II-XII Intact, Normal Cognition, Normal Gait, No Motor/Sensory Deficits Psychiatric: Normal Affect, Normal Mood Skin Exam: Warm, Dry, Intact, Normal Color, No Rash Lymphatic: No Adenopathy Course - Vital Signs Text/Narrative:: 28 y.o.w.f S/P Cholecystectomy a few years ago, came to the ED after 2 days of vomiting, every hour, unable to keep any food/fluid down. Denies , denies food poisoning. She complains of mid/mod epigastric discomfort. No Diarrhea, no dizziness but feels extremely weak. No Trauma. No Chest pain. No other acute medical issues. BP 133/91 RR 18 Pulse ox 100% on RA, Temp 36.7 Pulse 103 PE: WNWD W F with nausea and epigastric pain, Pt came back from a drinking drip from [place], last ETOH intake > 12 hours ago. Labs: CBC, BMP nl, Cl was 99, Neutro were 90% however. UA pending Imaging: Not indicated Impression: Gastritis, Dehydration, S/P cholecystectomy. ETOH withdrawal anxiety , sinus tachycardia (103) Tx: Zofran, Protonix, NS. Ativan Reexam: Improved Plan: D/C with instruction with her brother. Last Recorded V/S: Last Vital Signs Temp 37.2 C 08/02/18 16:15 Pulse 98 08/02/18 16:15 Resp 18 08/02/18 16:15 BP 134/78 08/02/18 16:15 Pulse Ox 100 08/02/18 16:15 - Orders/Labs/Meds Orders: Active Orders 24 hr Category Date Time Status EKG Documentation Completion [RC] ASDIRECTED Care 08/02/18 15:58 Active EKG 12 Lead [EK] Routine Ther 08/02/18 15:58 Stop Req Labs: Laboratory Tests 08/02/18 08/02/18 08/02/18 Range/Units 14:40 14:40 14:40 WBC 9.9 (4.5-12.0) X10-3/uL RBC 4.87 (3.23-5.20) x10(6)uL Hgb 14.6 (11.5-15.5) g/dL Hct 43.1 (30.0-51.3) % MCV 88.6 (80-96) fL MCH 29.9 (27.7-33.6) pg MCHC 33.7 (32.2-35.4) g/dL RDW 12.6 (11.5-15.5) % Plt Count 328 (125-369) X10(3)uL MPV 8.2 (7.4-10.4) fL Add Manual Diff Yes Neutrophils % (Manual) 90 H (46-82) % Lymphocytes % (Manual) 7 L (13-37) % Monocytes % (Manual) 1 L (4-12) % Eosinophils % (Manual) 2 (0-5) % Sodium 140 (135-145) mmol/L Potassium 3.7 (3.5-5.3) mmol/L Chloride 99 L (100-110) mmol/L Carbon Dioxide 29 (21-32) mmol/L BUN 11 (7-18) mg/dL Creatinine 0.9 (0.55-1.02) mg/dL Est Cr Clr Drug Dosing 84.49 mL/min Estimated GFR (MDRD) > 60 (>60) BUN/Creatinine Ratio 12.2 (9-20) Glucose 111 (80-116) mg/dL Calcium 8.6 (8.6-10.2) mg/dL Amylase (25-115) U/L HCG, Quant 1 L (<5) mIU/mL Urine Color (YELLOW) Urine Appearance (CLEAR) Urine pH (5.0-6.5) Ur Specific Leigh (1.010-1.025) Urine Protein (NEGATIVE) mg/dL Urine Glucose (UA) (NEGATIVE) mg/dL Urine Ketones (NEGATIVE) mg/dL Urine Occult Blood (NEGATIVE) Urine Nitrite (NEGATIVE) Urine Bilirubin (NEGATIVE) Urine Urobilinogen (NEGATIVE) mg/dL Ur Leukocyte Esterase (NEGATIVE) Urine RBC (0) Urine WBC (0) Ur Squamous Epith Cells (NS,R,O) Urine Bacteria (NS) Urine Mucus (NS) Ethyl Alcohol (<0.03) % 08/02/18 08/02/18 08/02/18 Range/Units 14:40 14:40 14:53 WBC (4.5-12.0) X10-3/uL RBC (3.23-5.20) x10(6)uL Hgb (11.5-15.5) g/dL Hct (30.0-51.3) % MCV (80-96) fL MCH (27.7-33.6) pg MCHC (32.2-35.4) g/dL RDW (11.5-15.5) % Plt Count (125-369) X10(3)uL MPV (7.4-10.4) fL Add Manual Diff Neutrophils % (Manual) (46-82) % Lymphocytes % (Manual) (13-37) % Monocytes % (Manual) (4-12) % Eosinophils % (Manual) (0-5) % Sodium (135-145) mmol/L Potassium (3.5-5.3) mmol/L Chloride (100-110) mmol/L Carbon Dioxide (21-32) mmol/L BUN (7-18) mg/dL Creatinine (0.55-1.02) mg/dL Est Cr Clr Drug Dosing mL/min Estimated GFR (MDRD) (>60) BUN/Creatinine Ratio (9-20) Glucose (80-116) mg/dL Calcium (8.6-10.2) mg/dL Amylase 18 L (25-115) U/L HCG, Quant (<5) mIU/mL Urine Color Yellow (YELLOW) Urine Appearance Slightly cloudy (CLEAR) Urine pH 7.0 H (5.0-6.5) Ur Specific Leigh 1.010 (1.010-1.025) Urine Protein Negative (NEGATIVE) mg/dL Urine Glucose (UA) Normal (NEGATIVE) mg/dL Urine Ketones 15 H (NEGATIVE) mg/dL Urine Occult Blood Negative (NEGATIVE) Urine Nitrite Negative (NEGATIVE) Urine Bilirubin Negative (NEGATIVE) Urine Urobilinogen Normal (NEGATIVE) mg/dL Ur Leukocyte Esterase Negative (NEGATIVE) Urine RBC 0-5 (0) Urine WBC 0-5 (0) Ur Squamous Epith Cells Moderate H (NS,R,O) Urine Bacteria Moderate H (NS) Urine Mucus Few H (NS) Ethyl Alcohol < 0.03 (<0.03) % Meds: Medications Discontinued Medications Generic Name Dose Route Start Last Admin Trade Name Freq PRN Reason Stop Dose Admin Al Hydroxide/Mg Hydroxide 15 0 ml 08/02/18 15:41 08/02/18 16:46 ml/ Lidocaine HCl 15 ml PO 08/02/18 15:42 15 ml ONETIME ONE Administration Sodium Chloride 1,000 mls @ 999 mls/hr 08/02/18 14:30 08/02/18 15:20 Normal Saline IV 08/02/18 15:30 999 mls/hr .BOLUS ONE Administration Lorazepam 1 mg 08/02/18 16:44 08/02/18 16:54 Ativan IVPUSH 08/02/18 16:45 1 mg ONETIME STA Administration Ondansetron HCl 8 mg 08/02/18 14:31 08/02/18 15:20 Zofran IVPUSH 08/02/18 14:32 8 mg ONETIME ONE Administration Pantoprazole Sodium 40 mg 08/02/18 14:31 08/02/18 15:27 Protonix Iv IVPUSH 08/02/18 14:32 40 mg ONETIME ONE Administration Departure - Departure Time of Disposition: 16:47 Disposition: Home, Self-Care 01 Condition: Good Clinical Impression: History of ETOH abuse, Dehydration, Acute anxiety Gastritis due to alcohol without hemorrhage Qualifiers: Chronicity: acute Qualified Code(s): K29.20 - Alcoholic gastritis without bleeding - Discharge Information Prescriptions: ALPRAZolam [Xanax] 0.25 mg PO BEDTIME PRN #2 tablet PRN Reason: for ETOH withdrawel symptoms Ondansetron [Zofran ODT] 4 mg PO Q6H PRN #8 tab.dis PRN Reason: Nausea Pantoprazole Sodium [Protonix] 20 mg PO DAILY #10 tablet.dr Referrals: Josie Solares, [employer] [Ordering Only Provider] - Additional Instructions: Please wesley not drink any etoh beverages. Please increase water intake. Please take clonazepam for your ETOH withdrawal symptoms for today 1 Tabl) Protonix for your Gastritis, Zofran for nausea. Please f/u with your PMD, please come back if your symptoms get worse acutely. - My Orders Last 24 Hours: My Active Orders 08/02/18 15:58 EKG Documentation Completion [RC] ASDIRECTED EKG 12 Lead [EK] Routine - Assessment/Plan Last 24 Hours: My Active Orders 08/02/18 15:58 EKG Documentation Completion [RC] ASDIRECTED EKG 12 Lead [EK] Routine
[2018-08-02] MEDS ORDERED: Alum Hydroxide/Mag Hydroxide 15 ML, Lidocaine 2% 15 ML PO ONE ×2 (15:41)
[2018-08-02] MEDS ORDERED: LORazepam 2 MG/ML SDV IVPUSH STA (16:44)
[2018-08-02 17:25] VITALS: BP 128/87
== END 2018-08-02 17:10 | disposition home or self-care (01) ==
LOC: FB.ED 14:15
DX: K29.20 Alcoholic gastritis without bleeding (principal); F41.9 Anxiety disorder, unspecified; F10.239 Alcohol dependence with withdrawal, unspecified
CPT/HCPCS: 36415; 80048; 81001; 82150; 84702; 85025; 96361; 96374; 96375; 99283; A9270; C9113; G0480; J2060; J2405; J7030

== ENCOUNTER 2018-10-02 10:59 | Emergency (ER) | payer OTHER ==
[2018-10-02] MEDS: Ondansetron 8 MG Tab.DIS PO ONE (12:15)
[2018-10-02] MEDS: Sodium Chloride 0.9% 1,000 ML IV ONE (12:47)
[2018-10-02] MEDS: Sodium Chloride 0.9% 10 ML Syringe FLUSH PRN (12:47)
[2018-10-02] MEDS: Pantoprazole 40 MG Vial IVPUSH ONE (12:48)
[2018-10-02] MEDS: Alum Hydroxide/Mag Hydroxide 15 ML, Lidocaine 2% 15 ML PO ONE ×2 (15:53)
[2018-10-02] MEDS: Famotidine 20 MG/2 ML SDV IVPUSH ONE (16:00)
--- NOTE | 2018-10-02 16:02 | EDM.PDOC ---
ED HPI GENERAL MEDICAL PROBLEM - General Chief Complaint: General Stated Complaint: ANXIETY Time Seen by Provider: 10/02/18 12:08 Source of Information: Reports: Patient, Family History Limitations: Reports: No Limitations - History of Present Illness INITIAL COMMENTS - FREE TEXT/NARRATIVE: Maria Victoria is a pleasant 28-year-old female who presents today with concern for nausea and vomiting, also for ongoing alcohol use and feeling very anxious about her daughter's upcoming surgery. Patient reports that her daughter who is 5 years old and is undergoing oral surgery on . She reports that this has caused significant stress to her as previously she had some Bradycardia episodes and being under general anesthesia. She has had significant difficulty coping with stress in general, and reports having been drinking about 4-5 or possibly more beers daily for the past 5-6 months. She reports she had 4 beers last night, this morning woke up with some ongoing vomiting. Sometimes she wonders if she is allergic to alcohol. She reports that she is interested in outpatient treatment program, however has not been able to get into one. She has been told that she has possibly some liver problems and probably alcoholic gastritis resulting from her chronic heavy alcohol use. She denies any hallucinations, but states she does feel anxious. Significant nausea and vomiting. Doesn't feel trembly, doesn't report any paresthesias or hallucinations. She has never gone into delirium tremens when she has quit alcohol before, and has been able to withdraw at home just feels jittery. She has not had any recent prolonged period of sobriety. She denies any other substance use including tobacco, marijuana or any other illicit substances. no one else in the family has been sick. Her mother accompanies her today who also lives nearby. - Related Data Allergies Allergy/AdvReac Type Severity Reaction Status Date / Time No Known Allergies Allergy Verified 08/02/18 14:35 Home Meds: Home Meds Metoprolol Succinate [Toprol XL] 25 mg PO DAILY #15 tab.er 07/15/18 [Rx] Ondansetron [Zofran ODT] 4 mg PO Q6H PRN #20 tab.dis 10/02/18 [Rx] RX: Omeprazole Magnesium 20 mg PO DAILY #30 capsule. 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 Has not used drug since 2011, was in tx @ that time for drug addiction. Has been drinking daily approx 8 beers for past 5-6 months. Dermatologic History: Reports: Eczema Other Dermatologic History: eczema - Infectious Disease History Infectious Disease History: Reports: Chicken Pox - Past Surgical History HEENT Surgical History: Reports: None Respiratory Surgical History: Reports: None GI Surgical History: Reports: None, Colonoscopy, EGD Dermatological Surgical History: Reports: None Social & Family History - Family History Family Medical History: Noncontributory Cardiac: Reports: Afib, [place] Respiratory: Reports: Asthma OBGYN: Reports: Musculoskeletal: Reports: Fibromyalgia, Osteoporosis Psychiatric: Reports: Bipolar, Depression Endocrine/Metabolic: Reports: Diabetes, type II Hematologic: Reports: Other (See Below) Other Hematologic Family History: antigen karla - Tobacco Use Smoking Status *Q: Never Smoker - Caffeine Use Caffeine Use: Reports: None - Alcohol Use Days Per Week of Alcohol Use: 1 Number of Drinks Per Day: 4 Total Drinks Per Week: 4 - Recreational Drug Use Recreational Drug Use: No ED ROS GENERAL - Review of Systems Review Of Systems: ROS reveals no pertinent complaints other than HPI. Constitutional: Denies: Fever, Decreased Appetite HEENT: Denies: Rhinitis, Sinus Problem, Throat Pain, Vision Change Respiratory: Denies: Shortness of Breath, Wheezing, Cough Cardiovascular: Denies: Chest Pain, Edema, Lightheadedness, Palpitations GI/Abdominal: Reports: Abdominal Pain. Denies: Decreased Appetite, Hematemesis , Melena : Denies: Dysuria, Flank Pain, Frequency, Urgency Musculoskeletal: Denies: Joint Pain, Joint Swelling Skin: Denies: Rash Neurological: Reports: Headache. Denies: Confusion, Trouble Speaking, Difficulty Walking Psychiatric: Reports: Anxiety Hematologic/Lymphatic: Denies: Easy Bleeding, Easy Bruising ED EXAM, GENERAL - Physical Exam Exam: See Below Free Text/Narrative:: Gen.: Alert, initially vomiting but then calms down and is pleasant. Throat is without erythema, mucous members are moist and there is no tonsillar enlargement or x-rays. No cervical lymphadenopathy. Lungs are clear throughout no wheezes or crackles and heart is regular rate and rhythm. Abdomen positive bowel sounds, soft nondistended and minimally tender with no focal tenderness, negative Tejeda's and McBurney's point and no rebound or guarding. Extremities have +2 pulses in both the upper and lower extremities. She has no peripheral edema. Neurological exam: Cranial nerves II through XII grossly intact without focal deficit, equal strength bilaterally and no tremors noted. Pupils are equal and reactive. Psych: affect is tearful, but she does make good eye contact and answers questions appropriately. Speech is normal rate and volume as she does not have any apparent hallucinations or paranoia. She denies any suicidal ideation Course - Vital Signs Text/Narrative:: patient initially vomiting, reports alcohol use last night. Reports tearfully that this has been a chronic ongoing problem for her and she notes she needs help. Other history includes SVT for which she is on metoprolol, history of liver problems and gastritis both probably alcohol related. We will get labs, Zofran and IV fluid ordered. Also ordered Protonix Last Recorded V/S: Last Vital Signs Temp 37.1 C 10/02/18 17:00 Pulse 80 10/02/18 17:00 Resp 16 10/02/18 17:00 BP 128/82 10/02/18 17:00 Pulse Ox 99 10/02/18 17:00 - Orders/Labs/Meds Orders: Active Orders 24 hr Category Date Time Status LIPASE, SERUM Stat Lab 10/02/18 13:02 Received Saline Lock Insert [OM.PC] Routine Oth 10/02/18 12:07 Ordered Labs: Laboratory Tests 10/02/18 10/02/18 10/02/18 Range/Units 13:02 13:02 13:02 WBC 5.6 (4.5-12.0) X10-3/uL RBC 4.25 (3.23-5.20) x10(6)uL Hgb 13.1 (11.5-15.5) g/dL Hct 37.8 (30.0-51.3) % MCV 88.9 (80-96) fL MCH 30.8 (27.7-33.6) pg MCHC 34.6 (32.2-35.4) g/dL RDW 13.2 (11.5-15.5) % Plt Count 258 (125-369) X10(3)uL MPV 7.9 (7.4-10.4) fL Neut % (Auto) 76.5 (46-82) % Lymph % (Auto) 16.2 (13-37) % Alger % (Auto) 3.9 L (4-12) % Eos % (Auto) 1 (1.0-5.0) % Baso % (Auto) 3 H (0-2) % Neut # (Auto) 4.4 (1.6-8.3) # Lymph # (Auto) 0.9 (0.6-5.0) # Alger # (Auto) 0.2 (0.0-1.3) # Eos # (Auto) 0.0 (0.0-0.8) # Baso # (Auto) 0.1 (0.0-0.2) # PT 11.6 H (8.7-11.1) INR 1.20 H (0.89-1.13) Sodium 141 (135-145) mmol/L Potassium 3.4 L (3.5-5.3) mmol/L Chloride 102 (100-110) mmol/L Carbon Dioxide 30 (21-32) mmol/L BUN 8 (7-18) mg/dL Creatinine 0.7 (0.55-1.02) mg/dL Est Cr Clr Drug Dosing 108.63 mL/min Estimated GFR (MDRD) > 60 (>60) BUN/Creatinine Ratio 11.4 (9-20) Glucose 102 (80-116) mg/dL Calcium 8.3 L (8.6-10.2) mg/dL Total Bilirubin 0.3 (0.1-1.3) mg/dL AST 67 H D (5-25) IU/L ALT 51 H D (12-36) U/L Alkaline Phosphatase 81 (56-112) IU/L Total Protein 6.8 (6.0-8.0) g/dL Albumin 3.5 (3.5-5.2) g/dL Globulin 3.3 g/dL Albumin/Globulin Ratio 1.1 Meds: Medications Discontinued Medications Generic Name Dose Route Start Last Admin Trade Name Freq PRN Reason Stop Dose Admin Al Hydroxide/Mg Hydroxide 15 0 ml 10/02/18 15:49 10/02/18 15:53 ml/ Lidocaine HCl 15 ml PO 10/02/18 15:50 30 ml ONETIME ONE Administration Famotidine 20 mg 10/02/18 15:49 10/02/18 16:00 Pepcid IVPUSH 10/02/18 15:50 Not Given ONETIME ONE Sodium Chloride 1,000 mls @ 500 mls/hr 10/02/18 12:07 10/02/18 12:47 Normal Saline IV 10/02/18 14:06 500 mls/hr .BOLUS ONE Administration Famotidine 20 mg/ Premix 50 mls @ 200 mls/hr 10/02/18 15:59 10/02/18 16:06 IV 10/02/18 16:00 200 mls/hr ONETIME ONE Administration Sodium Chloride 250 mls @ 120 mls/hr 10/02/18 16:16 10/02/18 16:16 Normal Saline IV 120 mls/hr ASDIRECTED TIM Administration Ondansetron HCl 8 mg 10/02/18 12:07 10/02/18 12:15 Zofran Odt PO 10/02/18 12:08 8 mg ONETIME ONE Administration Pantoprazole Sodium 40 mg 10/02/18 12:42 10/02/18 12:48 Protonix Iv IVPUSH 10/02/18 12:43 40 mg ONETIME ONE Administration Sodium Chloride 10 ml 10/02/18 12:07 10/02/18 12:47 Saline Flush FLUSH 10 ml ASDIRECTED PRN Administration Keep Vein Open - Re-Assessments/Exams Free Text/Narrative Re-Assessment/Exam: 10/02/18 patient somewhat improved with Zofran and some IV fluids. Reports still feeling somewhat lightheaded but he is able to take some by mouth now. Discussed possibility of discharging to detox and she says she will think about it. [facility] may have a female bed available today later in detox if patient is medically stable and has no history of DTs. Free Text/Narrative Re-Assessment/Exam: 10/02/18 patient requesting to not go to detox until after her daughter's surgery on Thursday. She feels much better but is wondering if she could try a GI cocktail as her abdomen still is bothering her and she has significant heartburn. Free Text/Narrative Re-Assessment/Exam: 10/02/18 improvement noted after GI cocktail. Patient requesting discharge home , she thinks she will spend the next few days at her mother's to help with the anxiety and also limit her access to beer. No history of DTs or seizures but not sure she'll be able to get fully off alcohol at home. Vitals remain stable. No tremor, alert, oriented, hemodynamically stable, able to tolerate some PO prior to discharge. Will Rx omeprazole and zofran. Strongly encouraged to followup regarding outpatient treatment or rehab. 10/02/18 20:26 Departure - Departure Time of Disposition: 17:00 Disposition: Home, Self-Care 01 Condition: Fair Clinical Impression: Alcohol abuse Gastritis due to alcohol without hemorrhage Qualifiers: Chronicity: acute Qualified Code(s): K29.20 - Alcoholic gastritis without bleeding - Discharge Information *PRESCRIPTION DRUG MONITORING PROGRAM REVIEWED*: Not Applicable *COPY OF PRESCRIPTION DRUG MONITORING REPORT IN PATIENT GARRETT: Not Applicable Prescriptions: RX: Omeprazole Magnesium 20 mg PO DAILY #30 capsule. Ondansetron [Zofran ODT] 4 mg PO Q6H PRN #20 tab.dis PRN Reason: Nausea Instructions: Alcohol Use Disorder Referrals: Casimiro Andujar MD [Primary Care Provider] - Forms: ED Department Discharge Additional Instructions: most important is to work on a long-term plan to quit drinking outpatient treatment - talk with PCP office to do acute detox (inpatient), have to be medically evaluated prior so may need to return to ER. PCP may also be able to help for next few days, if can be somewhere there isn't a lot of alcohol available, and have someone around to help with anxiety over daughter, that would be very helpful I think also - My Orders Last 24 Hours: My Active Orders 10/02/18 12:07 Saline Lock Insert [OM.PC] Routine 10/02/18 13:02 LIPASE, SERUM Stat - Assessment/Plan Last 24 Hours: My Active Orders 10/02/18 12:07 Saline Lock Insert [OM.PC] Routine 10/02/18 13:02 LIPASE, SERUM Stat
[2018-10-02] MEDS: Famotidine/Normal Saline 20 MG in Premix Bag 1 BAG IV ONE (16:06)
[2018-10-02] MEDS: Sodium Chloride 0.9% 250 ML IV SCH (16:16)
[2018-10-02 17:22] VITALS: BP 128/82
== END 2018-10-02 17:02 | disposition home or self-care (01) ==
LOC: FB.ED 10:59
DX: K29.20 Alcoholic gastritis without bleeding (principal); F10.10 Alcohol abuse, uncomplicated
CPT/HCPCS: 36415; 80053; 83690; 85025; 85610; 96361; 96374; 96375; 99283; A9270; C9113; J7030; J7050

== ENCOUNTER 2019-01-08 02:54 | Emergency (ER) | payer MEDICAID, OTHER ==
[2019-01-08] MEDS ORDERED: Ondansetron 4 MG Tab.DIS PO ONE (05:25)
[2019-01-08] MEDS ORDERED: Famotidine 20 MG Tab PO ONE (05:25)
[2019-01-08] MEDS ORDERED: Alum Hydroxide/Mag Hydroxide 15 ML, Lidocaine 2% 15 ML PO ONE ×2 (05:25)
[2019-01-08] MEDS ORDERED: Potassium Chloride 10% 20 MEQ/15 ML Soln 15 ML UD Cup PO ONE (05:50)
--- NOTE | 2019-01-08 05:56 | EDM.PDOC ---
ED HPI GENERAL MEDICAL PROBLEM - General Chief Complaint: Chest Pain Stated Complaint: PALPITATION Time Seen by Provider: 01/08/19 05:00 Source of Information: Reports: Patient History Limitations: Reports: No Limitations - History of Present Illness INITIAL COMMENTS - FREE TEXT/NARRATIVE: patient is a pleasant 28-year-old female who presents with concern for palpitations and severe acid reflux that she was going to sleep tonight. She said it's been going on over the past 2 days and she hasn'ry well at all. She has a history of palpitations for which she takes metoprolol 25 mg daily, and states she has not missed any doses. She also has a history of GERD for which she was started on a PPI and ran out of exactly 2 days ago. She has tried taking Tums/Rolaids but they don't really seem to be doing a lot of good. History of asthma, notices some increased shortness of breath with disability and especially when going up and down stairs. No regular exercise because out to the park with her kids ages 2 and 5. She's not had any syncopal events where she feels like she is going to pass out. Last couple days she's noted a few chills, nausea and vomiting, also diarrhea. No one else in the house is sick. she has not noted any blood in her vomit or stool. No cough, no nighttime cough, no pleuritic chest pain, no syncopal events, no chest pain with exertion Does not smoke, occasional alcohol use. Sexually active with her boyfriend of 12 years, 2 kids ages 2 and 5. currently on her menstrual cycle, periods have been regular. Uses condoms only for control - Related Data Allergies Allergy/AdvReac Type Severity Reaction Status Date / Time No Known Allergies Allergy Verified 08/02/18 14:35 Home Meds: Home Meds Metoprolol Succinate [Toprol XL] 25 mg PO DAILY #15 tab.er 07/15/18 [Rx] Omeprazole Magnesium 20 mg PO DAILY #30 capsule. 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 Has not used drug since 2011, was in tx @ that time for drug addiction. Has been drinking daily approx 8 beers for past 5-6 months. Dermatologic History: Reports: Eczema Other Dermatologic History: eczema - Infectious Disease History Infectious Disease History: Reports: Chicken Pox - Past Surgical History HEENT Surgical History: Reports: None Respiratory Surgical History: Reports: None GI Surgical History: Reports: None, Colonoscopy, EGD Dermatological Surgical History: Reports: None Social & Family History - Family History Family Medical History: Noncontributory Cardiac: Reports: Afib, [place] Respiratory: Reports: Asthma OBGYN: Reports: Musculoskeletal: Reports: Fibromyalgia, Osteoporosis Psychiatric: Reports: Bipolar, Depression Endocrine/Metabolic: Reports: Diabetes, type II Hematologic: Reports: Other (See Below) Other Hematologic Family History: antigen karla - Tobacco Use Smoking Status *Q: Never Smoker - Caffeine Use Caffeine Use: Reports: None - Recreational Drug Use Recreational Drug Use: No - Living Situation & Occupation Living situation: Reports: with Significant Other Social History Comment: 2 kids, ages 2 and 5. full-time at home ED ROS GENERAL - Review of Systems Review Of Systems: ROS reveals no pertinent complaints other than HPI. ED EXAM, GENERAL - Physical Exam Exam: See Below Free Text/Narrative:: general: Alert, very pleasant no acute distress. Head is atraumatic, pupils equal and reactive and facial muscles are symmetric. Neck supple and there is no cervical adenopathy. Throat without erythema, mucous members are moist. Heart is regular rate and rhythm I do not hear murmur. Lungs are clear throughout with no wheezes or crackles and good air movement in all celaya. Abdomen positive bowel sounds, soft nondistended none tender in the lower quadrants with some diffuse epigastric tenderness, no rebound or guarding. Peripheral pulses +2 in both the upper and lower extremities and there is no lower extremity edema. Gait is normal she has equal strength decide. No obvious skin lesions or rashes. Psych: Mood and affect are appropriate, she makes good eye contact and answers questions appropriately wit no evidence of paranoia or hallucinations EKG INTERPRETATION Rhythm: NSR [place]: Normal P-Wave: Present QRS: Normal ST-T: Normal QT: Normal Course - Vital Signs Text/Narrative:: history SVT, in sinus rhythm here. On metoprolol. Hx asthma, lungs clear, using albuterol maybe 2X/week, triggered by humidity and tobacco smoke. No signs of exacerbation on exam. Definite signs of GERD, just recently ran out of PPI. given nausea, vomiting and diarrhea over weekend suspect also may have component of viral gastroenteritis. Abdominal exam benign. will get CBC, BMP, CRP and try GI cocktail w/ zofran and pepcid - Orders/Labs/Meds Labs: Laboratory Tests 01/08/19 01/08/19 01/08/19 Range/Units 03:05 03:05 03:05 WBC 7.4 (4.5-12.0) X10-3/uL RBC 4.74 (3.23-5.20) x10(6)uL Hgb 14.3 (11.5-15.5) g/dL Hct 41.8 (30.0-51.3) % MCV 88.2 (80-96) fL MCH 30.1 (27.7-33.6) pg MCHC 34.2 (32.2-35.4) g/dL RDW 12.5 (11.5-15.5) % Plt Count 259 (125-369) X10(3)uL MPV 8.9 (7.4-10.4) fL Neut % (Auto) 66.5 (46-82) % Lymph % (Auto) 19.9 (13-37) % [place] % (Auto) 6.8 (4-12) % Eos % (Auto) 6 H (1.0-5.0) % Baso % (Auto) 1 (0-2) % Neut # (Auto) 4.9 (1.6-8.3) # Lymph # (Auto) 1.5 (0.6-5.0) # [place] # (Auto) 0.5 (0.0-1.3) # Eos # (Auto) 0.4 (0.0-0.8) # Baso # (Auto) 0.1 (0.0-0.2) # Sodium 135 (135-145) mmol/L Potassium 3.2 L (3.5-5.3) mmol/L Chloride 98 L (100-110) mmol/L Carbon Dioxide 26 (21-32) mmol/L BUN 9 (7-18) mg/dL Creatinine 0.7 (0.55-1.02) mg/dL Est Cr Clr Drug Dosing TNP Estimated GFR (MDRD) > 60 (>60) BUN/Creatinine Ratio 12.9 (9-20) Glucose 97 (80-116) mg/dL Calcium 8.5 L (8.6-10.2) mg/dL Troponin I < 0.017 L (<0.017-0.056) ng/mL Meds: Medications Discontinued Medications Generic Name Dose Route Start Last Admin Trade Name Freq PRN Reason Stop Dose Admin Al Hydroxide/Mg Hydroxide 15 0 ml 01/08/19 05:25 01/08/19 05:38 ml/ Lidocaine HCl 15 ml PO 01/08/19 05:26 15 ml ONETIME ONE Administration Famotidine 20 mg 01/08/19 05:25 01/08/19 05:39 Pepcid PO 01/08/19 05:26 20 mg ONETIME ONE Administration Ondansetron HCl 4 mg 01/08/19 05:25 01/08/19 05:39 Zofran Odt PO 01/08/19 05:26 4 mg ONETIME ONE Administration Potassium Chloride 40 meq 01/08/19 05:50 01/08/19 05:58 Potassium Chloride Solution PO 01/08/19 05:51 40 meq ONETIME ONE Administration - Re-Assessments/Exams Free Text/Narrative Re-Assessment/Exam: 01/08/19 patient improvement after gi cocktail. has not had any additional episodes of palpitations since coming here. Does not have any chest pain or shortness of breath, no cough. Already on metoprolol. Discussed likely rebound of GERD given that she just recently abruptly discontinued her PPI due to running out of this medication. Advised switching to H2 pete and using for the next 3-4 weeks, she is encouraged with this plan. She is greatly reassured by the normal heart testing here. Given her low risk factors (HEART score 1) I do not think this was a cardiac event. If persistent symptoms may need repeat Holter. No signs of pulmonary compromise, no recent travel or other risk for PE, asthma not exacerbated, no infectious markers. oral K replacement dose given here, likely low due to diarrhea 01/08/19 Free Text/Narrative Re-Assessment/Exam: 01/08/19 06:28 patient feeling much better, comfortable with discharge discussed instructions, all questions answered Departure - Departure Time of Disposition: 06:28 Disposition: Home, Self-Care 01 Condition: Good Clinical Impression: Anxiety, Intermittent palpitations, Gastritis - Discharge Information *PRESCRIPTION DRUG MONITORING PROGRAM REVIEWED*: Not Applicable *COPY OF PRESCRIPTION DRUG MONITORING REPORT IN PATIENT GARRETT: Not Applicable Prescriptions: Famotidine [Pepcid] 20 mg PO BID #60 tab Instructions: Gastritis, Adult Referrals: Casimiro Andujar MD [Primary Care Provider] - Forms: ED Department Discharge Additional Instructions: start pepcid or equivalent - might be cheaper over the counter - take twice daily for 4-6 weeks. Taper off towards end, then can use this as needed for heartburn. ok to take Tums with this medication zofran as needed avoid alcohol, spicy foods, chocolate--very aggravating to stomach also best to eat at least 2 hours before bedtime, and sometimes need to put block on floor under head of bed to get slight slant if persistent palpitations, feeling lightheaded, dizzy, weak all over or like you're going to black out - be seen in ER if just happening in short bursts more often, may need to have increased dose of medication, discuss this with primary albuterol as needed - this will give you some increase in heart rate which may feel the same
[2019-01-08 08:26] VITALS: BP 140/99; PULSE 102
== END 2019-01-08 06:39 | disposition home or self-care (01) ==
LOC: FB.ED 02:54
DX: F41.9 Anxiety disorder, unspecified (principal); K29.70 Gastritis, unspecified, without bleeding; Z79.899 Other long term (current) drug therapy; Z79.891 Long term (current) use of opiate analgesic
CPT/HCPCS: 36415; 80048; 84484; 85025; 99284; A9270

== ENCOUNTER 2019-01-25 08:44 | Emergency (ER) | payer OTHER, MEDICAID ==
[2019-01-25] MEDS ORDERED: Ketorolac 60 MG/2 ML SDV IM ONE (09:03)
[2019-01-25] MEDS ORDERED: Cyclobenzaprine 10 MG Tab PO ONE (09:03)
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
[2019-01-25 10:07] VITALS: BP 139/94
== END 2019-01-25 10:27 ==
LOC: FB.ED 08:44
DX: S16.1XXA Strain of muscle, fascia and tendon at neck level, initial encounter (principal); Z79.899 Other long term (current) drug therapy; V49.49XA Driver injured in collision with other motor vehicles in traffic accident, initial encounter
CPT/HCPCS: 72040; 72100; 96372; 99283; A9270; J1885

== ENCOUNTER 2019-02-04 10:05 | Emergency (ER) | payer MEDICAID ==
--- NOTE | 2019-02-04 11:31 | EDM.PDOC ---
ED HPI GENERAL MEDICAL PROBLEM - General Chief Complaint: Respiratory Problem Stated Complaint: SOB Time Seen by Provider: 02/04/19 10:35 Source of Information: Reports: Patient, Old Records History Limitations: Reports: No Limitations - History of Present Illness INITIAL COMMENTS - FREE TEXT/NARRATIVE: patient presents with concern for worsening cough, feeling short of breath for the past two days. She states that last week she had cold symptoms of stuffy nose, sore throat, and sinus pressure and so did her two children. They were all seen on Monday and was determined to be viral. She states on Monday she started feeling worse and began using her inhaler, which she has not needed for 2 years. She is coughing a lot, especially at night. She has also had some chills and sweats, although no fever that she knows of. She feels extremely fatigued. slight decrease in appetite. No vomiting or diarrhea, no urinary symptoms, no chest pain, no headaches or blurry vision. She is taking Mucinex at home, and Tylenol as needed. She is on metoprolol for palpitations. She is using her inhaler every 4 hours, and use that just prior to arrival. - Related Data Allergies Allergy/AdvReac Type Severity Reaction Status Date / Time No Known Allergies Allergy Verified 01/25/19 09:03 Home Meds: Home Meds Metoprolol Succinate [Toprol XL] 25 mg PO DAILY #15 tab.er 07/15/18 [Rx] Cyclobenzaprine [Flexeril] 10 mg PO TID PRN #15 tab 01/25/19 [Rx] Ibuprofen [Ibu] 800 mg PO TID PRN #30 tablet 01/25/19 [Rx] Albuterol [Ventolin HFA] 2 - 4 puff .XX Q4HR PRN #1 inhaler 02/04/19 [Rx] Azithromycin 250 mg PO DAILY 5 Days #6 tablet 02/04/19 [Rx] Past Medical History - Past Health History Medical/Surgical History: Denies Medical/Surgical History HEENT History: Reports: Impaired Vision Other HEENT History: BRONCHITIS Cardiovascular History: Reports: Other (See Below) Other Cardiovascular History: SVT, on metoprolol Respiratory History: Reports: Asthma, Pneumonia, Recurrent Gastrointestinal History: Reports: Gastritis, PUD 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 Has not used drug since 2011, was in tx @ that time for drug addiction. Has been drinking daily approx 8 beers for past 5-6 months. Dermatologic History: Reports: Eczema Other Dermatologic History: eczema - Infectious Disease History Infectious Disease History: Reports: Chicken Pox - Past Surgical History HEENT Surgical History: Reports: None Respiratory Surgical History: Reports: None GI Surgical History: Reports: None, Colonoscopy, EGD Dermatological Surgical History: Reports: None Social & Family History - Family History Family Medical History: Noncontributory Cardiac: Reports: Afib, [place] Respiratory: Reports: Asthma OBGYN: Reports: Musculoskeletal: Reports: Fibromyalgia, Osteoporosis Psychiatric: Reports: Bipolar, Depression Endocrine/Metabolic: Reports: Diabetes, type II Hematologic: Reports: Other (See Below) Other Hematologic Family History: antigen karla - Tobacco Use Smoking Status *Q: Never Smoker - Caffeine Use Caffeine Use: Reports: None - Alcohol Use Alcohol Use History: No - Recreational Drug Use Recreational Drug Use: No - Living Situation & Occupation Living situation: Reports: with Significant Other Social History Comment: 2 kids, youngest one is 2 years old ED ROS GENERAL - Review of Systems Review Of Systems: ROS reveals no pertinent complaints other than HPI. ED EXAM, GENERAL - Physical Exam Exam: See Below Free Text/Narrative:: Gen.: Alert, very tired appearing. There is without erythema, mucous members are moist. There is no cervical lymphadenopathy in her neck is supple. Lungs have coarse rhonchorous sounds throughout, no wheezes even with prolonged expiration. There are no focal crackles. Heart is regular rate and rhythm, rate is between 100 and 110 on the monitor. Peripheral pulses +2 and equal bilaterally in both the upper and lower extremities and there is no lower extremity edema. She has a rash on her left forearm which she states started about a month ago when she was out camping and has intermittently flared. Otherwise she has no abnormal skin lesions. Abdomen positive bowel sounds, soft nondistended nontender. No notable joint swelling. Course - Vital Signs Text/Narrative:: initial impressionacute bronchitis versus asthma flare versus possible community-acquired pneumonia, especially given bimodal illness. not really concerning history for heart involvement. Patient with no history or risk factors for PE including no difficulty getting , no recent long trips, no history of any clots, no change in medications. HR consistent with albuterol use. Last Recorded V/S: Last Vital Signs Temp 36.6 C 02/04/19 10:05 Pulse 102 H 02/04/19 10:05 Resp 20 02/04/19 10:05 BP 143/102 H 02/04/19 10:05 Pulse Ox 98 02/04/19 10:05 - Orders/Labs/Meds Orders: Active Orders 24 hr Category Date Time Status CXR [Chest 2V] [CR] Stat Exams 02/04/19 10:49 Taken Labs: Laboratory Tests 02/04/19 02/04/19 02/04/19 Range/Units 11:10 11:10 11:10 WBC 4.3 L (4.5-12.0) X10-3/uL RBC 4.32 (3.23-5.20) x10(6)uL Hgb 12.9 (11.5-15.5) g/dL Hct 37.7 (30.0-51.3) % MCV 87.4 (80-96) fL MCH 29.9 (27.7-33.6) pg MCHC 34.3 (32.2-35.4) g/dL RDW 13.0 (11.5-15.5) % Plt Count 295 (125-369) X10(3)uL MPV 7.7 (7.4-10.4) fL Neut % (Auto) 59.6 (46-82) % Lymph % (Auto) 25.4 (13-37) % [place] % (Auto) 6.9 (4-12) % Eos % (Auto) 7 H (1.0-5.0) % Baso % (Auto) 1 (0-2) % Neut # (Auto) 2.5 (1.6-8.3) # Lymph # (Auto) 1.1 (0.6-5.0) # [place] # (Auto) 0.3 (0.0-1.3) # Eos # (Auto) 0.3 (0.0-0.8) # Baso # (Auto) 0.1 (0.0-0.2) # D-Dimer, Quantitative 0.61 H (0.0-0.59) mg/LFEU Troponin I < 0.017 L (<0.017-0.056) ng/mL C-Reactive Protein 0.5 (0.5-0.9) mg/dL - Re-Assessments/Exams Free Text/Narrative Re-Assessment/Exam: 02/04/19 11:25 labs reviewed, patient with white count slightly below normal, noted to have percentage elevated eosinophils. Chest x-ray appears clear. D-dimer is 0.02 above the cutoff. I discussed these with the patient and reexamined her lungs as well. She continues to have some rhonchorous sounds with no focal crackles and no wheezing. We discussed at length her clinical presentation and decided at this time not to do further studies for a pulmonary embolism, given that her d-dimer is just barely above the cutoff for normal and she has no other risk factors. Will treat for community-acquired pneumonia with azithromycin and patient instructed to follow up with PCP later this week if not feeling improved. Discussed signs or symptoms which should prompt need for return to the emergency room and she was in agreement with this plan. Departure - Departure Time of Disposition: 12:16 Disposition: Home, Self-Care 01 Condition: Fair Clinical Impression: Community acquired pneumonia - Discharge Information *PRESCRIPTION DRUG MONITORING PROGRAM REVIEWED*: Not Applicable *COPY OF PRESCRIPTION DRUG MONITORING REPORT IN PATIENT GARRETT: Not Applicable Prescriptions: Albuterol [Ventolin HFA] 2 - 4 puff .XX Q4HR PRN #1 inhaler PRN Reason: dyspnea Azithromycin 250 mg PO DAILY 5 Days #6 tablet Instructions: Azithromycin tablets, Community-Acquired Pneumonia, Adult Referrals: Casimiro Andujar MD [Primary Care Provider] - Forms: ED Department Discharge Additional Instructions: followup if not improving continue to use inhaler make sure to get lots of rest, drink lots of fluids - My Orders Last 24 Hours: My Active Orders 02/04/19 10:49 CXR [Chest 2V] [CR] Stat - Assessment/Plan Last 24 Hours: My Active Orders 02/04/19 10:49 CXR [Chest 2V] [CR] Stat
--- NOTE | 2019-02-04 13:42 | CR ---
INDICATION: Difficulty breathing, question pneumonia, history of asthma. CHEST: PA and lateral views of the chest, 02/04/19, were compared with and 10/29/14, revealing a very minimal dextroconcave scoliosis at the lower middle thoracic spine with the heart, mediastinum, and bony thorax otherwise unremarkable. Evidence of exogenous obesity is again noted. Pulmonary markings appear similar to the previous study with no definite infiltrate or effusion identified. There is some minimal lateral pleural thickening on the right, as previously, likely fibrotic in nature. IMPRESSION: Stable chest, no acute process. MTDD
[2019-02-04 22:12] VITALS: BP 132/94; PULSE 95
== END 2019-02-04 12:31 | disposition home or self-care (01) ==
LOC: FB.ED 10:05
DX: J18.9 Pneumonia, unspecified organism (principal); J45.909 Unspecified asthma, uncomplicated; Z79.899 Other long term (current) drug therapy
CPT/HCPCS: 36415; 71046; 84484; 85025; 85379; 86140; 99284-25

== ENCOUNTER 2019-02-04 22:38 | Emergency (ER) | payer MEDICAID ==
[2019-02-04 23:07] VITALS: BP 138/109; PULSE 98
[2019-02-04] MEDS ORDERED: Loratadine 10 MG Tab PO ONE (23:11)
[2019-02-04] MEDS ORDERED: Codeine/guaiFENesin 100-10 MG/5 ML Syrup 5 ML Cup PO ONE (23:12)
[2019-02-04] MEDS ORDERED: predniSONE 20 MG Tab ONE (23:23)
--- NOTE | 2019-02-04 23:52 | EDM.PDOC ---
ED HPI GENERAL MEDICAL PROBLEM - General Chief Complaint: Respiratory Problem Stated Complaint: SOB Time Seen by Provider: 02/04/19 22:50 Source of Information: Reports: Patient History Limitations: Reports: No Limitations - History of Present Illness INITIAL COMMENTS - FREE TEXT/NARRATIVE: patient is a 29-year-old female seen earlier this morning with concern for difficulty breathing, coughing, and some substernal chest burning. She returns tonight with concern that she tried to sleep and was unable to because she was coughing to pad, and sometimes it was difficult to catch her breath. Cough is nonproductive. She has tried Mucinex, Tylenol and has taken her first dose of antibiotic. She states that sometimes her cough is so bad she feels panicky. She denies any palpitations. She notes that she has been trying to sleep on the couch and she slipped and does not want to wake up her significant other. They have a cat, who is now allowed in the bedroom but is around the rest of the house.She has no recent major travel except for a camping trip April 29 [place] and going down to [place] in June. No significant outdoor dirt or freshly turned Earth exposures. She's had some diarrhea with this illness, but no fever, no blurred chest pain, no shortness of breath in between coughing episodes once uses her inhaler. Please see note from earlier in the day for another one - Related Data Allergies Allergy/AdvReac Type Severity Reaction Status Date / Time No Known Allergies Allergy Verified 02/04/19 23:07 Home Meds: Home Meds Metoprolol Succinate [Toprol XL] 25 mg PO DAILY #15 tab.er 07/15/18 [Rx] Albuterol [Ventolin HFA] 2 - 4 puff .XX Q4HR PRN #1 inhaler 02/04/19 [Rx] Azithromycin 250 mg PO DAILY 5 Days #6 tablet 02/04/19 [Rx] Past Medical History - Past Health History Medical/Surgical History: Denies Medical/Surgical History HEENT History: Reports: Impaired Vision Other HEENT History: BRONCHITIS Cardiovascular History: Reports: Other (See Below) Other Cardiovascular History: SVT, on Metoprolol. Respiratory History: Reports: Asthma, Other (See Below) Other Respiratory History: States history of asthma, bronchitis, and pneumonia. 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 Psychiatric History: Reports: Anxiety, Depression, Panic Attack, Other (See Below) Other Psychiatric History: Hx cutting. Hx ETOH & drug abuse. Has not used drug since 2011, was in treatment @ that time for drug addiction. States drinks alcohol only on weekends. Dermatologic History: Reports: Eczema Other Dermatologic History: eczema - Infectious Disease History Infectious Disease History: Reports: Chicken Pox - Past Surgical History HEENT Surgical History: Reports: Tonsillectomy GI Surgical History: Reports: Cholecystectomy, Colonoscopy, EGD Social & Family History - Family History Family Medical History: Noncontributory Cardiac: Reports: Afib, [place] Respiratory: Reports: Asthma OBGYN: Reports: Musculoskeletal: Reports: Fibromyalgia, Osteoporosis Psychiatric: Reports: Bipolar, Depression Endocrine/Metabolic: Reports: Diabetes, type II Hematologic: Reports: Other (See Below) Other Hematologic Family History: Antigen. - Tobacco Use Smoking Status *Q: Never Smoker - Caffeine Use Caffeine Use: Reports: None - Alcohol Use Days Per Week of Alcohol Use: 2 Number of Drinks Per Day: 5 Total Drinks Per Week: 10 - Recreational Drug Use Recreational Drug Use: No - Living Situation & Occupation Living situation: Reports: with Significant Other ED ROS GENERAL - Review of Systems Review Of Systems: ROS reveals no pertinent complaints other than HPI. ED EXAM, GENERAL - Physical Exam Exam: See Below Free Text/Narrative:: Gen.: Alert, no acute distress and completely nontoxic appearing. Tympanic members are clear bilaterally with normal light reflex, throat is mildly erythematous and mucous members are moist with no tonsillar enlargement or exudates. She has no cervical lymphadenopathy. Lungs have few scattered rhonchorous sounds but really are quite clear throughout and I think better than earlier this afternoon. heart is regular rate and rhythm and I do not hear a murmur. Peripheral pulses +2 in the upper and lower extremities and there is no lower extremity edema. Course - Vital Signs Text/Narrative:: reviewed history in depth, primary concern seems to be difficulty falling asleep due to coughing. Incidentally, she is not noted to have a significant cough here although does cough a little bit once she lays down. Review of lab work and imaging from earlier in the day and do not think any additional testing would be helpful. Discussed at length with the patient symptomatic cares for cough, given dose of cough syrup with codeine here but recommended over the counters for home. Also given single dose of prednisone here but I don' t think a course is appropriate given that she has absolutely no wheezing on exam her lungs are overall extremely clear. Continue antibiotics, advised that it will take 24-48 hours for them to have affect. Discussed signs or symptoms which should prompt need to return to the emergency room and all questions were answered Last Recorded V/S: Last Vital Signs Temp 36.8 C 02/04/19 22:40 Pulse 98 02/04/19 22:40 Resp 18 02/04/19 22:40 BP 138/109 H 02/04/19 22:40 Pulse Ox 97 02/04/19 22:40 - Orders/Labs/Meds Meds: Medications Discontinued Medications Generic Name Dose Route Start Last Admin Trade Name Christiano PRN Reason Stop Dose Admin Guaifenesin/Codeine Phosphate 5 ml 02/04/19 23:12 02/04/19 23:24 Robitussin Ac PO 02/04/19 23:13 5 ml ONETIME ONE Administration Loratadine 10 mg 02/04/19 23:11 02/04/19 23:25 Claritin PO 02/04/19 23:12 10 mg ONETIME ONE Administration Ondansetron HCl 4 mg 02/04/19 23:59 02/05/19 00:06 Zofran Odt PO 02/05/19 00:00 4 mg ONETIME ONE Administration Prednisone 40 mg 02/05/19 23:12 02/04/19 23:24 Prednisone PO 02/05/19 23:13 40 mg ONETIME ONE Administration Prednisone Confirm 02/04/19 23:23 02/05/19 00:06 Prednisone Administered 02/04/19 23:24 Not Given Dose 40 mg .ROUTE .STK-MED ONE Departure - Departure Time of Disposition: 23:49 Disposition: Home, Self-Care 01 Condition: Good Clinical Impression: Cough, Community acquired pneumonia - Discharge Information *PRESCRIPTION DRUG MONITORING PROGRAM REVIEWED*: Not Applicable *COPY OF PRESCRIPTION DRUG MONITORING REPORT IN PATIENT GARRETT: Not Applicable Referrals: Casimiro Andujar MD [Primary Care Provider] - Forms: ED Department Discharge Additional Instructions: can try robitussin over the counter cough syrup honey is also helpful for cough may want to try allergy medication such as claritin or zyrtec and see if helps also symptoms should improve in 24-48 hours, however viral illnesses take longer and that may still be part of this continue inhaler as needed f/u Monday or if not improved
[2019-02-04] MEDS ORDERED: Ondansetron 4 MG Tab.DIS PO ONE (23:59)
[2019-02-05] MEDS ORDERED: predniSONE 20 MG Tab PO ONE (23:12)
== END 2019-02-05 00:10 | disposition home or self-care (01) ==
LOC: FB.ED 22:38
DX: J18.9 Pneumonia, unspecified organism (principal); Z79.899 Other long term (current) drug therapy
CPT/HCPCS: 99283; A9270

== ENCOUNTER 2019-02-12 | Emergency (ER) | payer MEDICAID ==
[2019-02-12] MEDS ORDERED: Sodium Chloride 0.9% 10 ML Syringe FLUSH PRN (00:19)
[2019-02-12 01:07] LABS: ACETAMINOPHEN < 2 ug/mL (<2)
[2019-02-12] MEDS ORDERED: Metoprolol Tartrate 5 MG in Sodium Chloride 0.9% 50 ML IV ONE (01:07)
[2019-02-12] MEDS ORDERED: Metoprolol Tartrate 5 MG/5 ML SDV IVPUSH ONE (01:09)
[2019-02-12] MEDS ORDERED: Sodium Chloride 0.9% 1,000 ML IV SCH (01:30)
[2019-02-12] MEDS ORDERED: Potassium Chloride 20 MEQ in Premix Bag 1 BAG IV ONE (01:34)
[2019-02-12] MEDS ORDERED: Potassium Chloride 20 MEQ Tab.ER PO ONE (02:21)
[2019-02-12] MEDS ORDERED: Ondansetron 4 MG/2 ML SDV IVPUSH ONE (02:21)
[2019-02-12] MEDS ORDERED: Thiamine 100 MG Tab PO ONE (02:22)
[2019-02-12] MEDS: Sodium Chloride 0.9% 1,000 ML IV SCH ×2 (02:35→06:26)
--- NOTE | 2019-02-12 02:36 | EDM.PDOCBH ---
ED HPI GENERAL MEDICAL PROBLEM - General Stated Complaint: LACERATION LT PALM Time Seen by Provider: 02/12/19 00:10 Source of Information: Reports: Patient, Significant Other History Limitations: Reports: No Limitations - History of Present Illness INITIAL COMMENTS - FREE TEXT/NARRATIVE: brought in by boyfriend. Had a bad night - went 4-wheeling, then was out with her boyfriend. They had some alcohol. After they got home, he states he stepped outside, when he went back in she had cut herself and was stating she wanted to commit suicide. Patient arrived with boyfriend in private car. [facility]. Reports she is very afraid. States she has been depressed for some time, and wants to kill herself tonight. She cut herself on her arms several times. She states she has been to [facility] previously, and would be interested in going back. Has also been drinking more recently, about 5-8 beers on regular basis ( declines to quantify) and binge drinking on weekends. She states she can no longer handle herself or take care of her kids this way. She denies any history of alcohol withdrawal seizures or DTs. She denies any other ingestions, substances, denies having any sharp objects, or having attempted any other way of hurting herself. she is on metoprolol ER 25mg nightly, and did not take tonight recent URI/atypical pneumonia which is improved - Related Data Allergies Allergy/AdvReac Type Severity Reaction Status Date / Time No Known Allergies Allergy Verified 02/12/19 05:19 Home Meds: Home Meds Metoprolol Succinate [Toprol XL] 25 mg PO DAILY #15 tab.er 07/15/18 [Rx] Albuterol [Ventolin HFA] 2 - 4 puff .XX Q4HR PRN #1 inhaler 02/04/19 [Rx] Past Medical History - Past Health History Medical/Surgical History: Denies Medical/Surgical History HEENT History: Reports: Impaired Vision Other HEENT History: BRONCHITIS Cardiovascular History: Reports: Other (See Below) Other Cardiovascular History: SVT, on Metoprolol. Respiratory History: Reports: Asthma, Other (See Below) Other Respiratory History: States history of asthma, bronchitis, and pneumonia. Gastrointestinal History: Reports: Gastritis, PUD REGIONAL FORESTER History: Reports: Other REGIONAL FORESTER History: . Psychiatric History: Reports: Anxiety, Depression, Panic Attack, Other (See Below) Other Psychiatric History: Hx cutting. Hx ETOH & drug abuse. Has not used drug since 2011, was in treatment @ that time for drug addiction. States drinks alcohol only on weekends. Dermatologic History: Reports: Eczema Other Dermatologic History: eczema - Infectious Disease History Infectious Disease History: Reports: Chicken Pox - Past Surgical History HEENT Surgical History: Reports: Tonsillectomy GI Surgical History: Reports: Cholecystectomy, Colonoscopy, EGD Social & Family History - Family History Family Medical History: Noncontributory Cardiac: Reports: Afib, [place] Respiratory: Reports: Asthma OBGYN: Reports: Musculoskeletal: Reports: Fibromyalgia, Osteoporosis Psychiatric: Reports: Bipolar, Depression Endocrine/Metabolic: Reports: Diabetes, type II Hematologic: Reports: Other (See Below) Other Hematologic Family History: Antigen. - Tobacco Use Smoking Status *Q: Current Some Day Smoker - Caffeine Use Caffeine Use: Reports: None - Alcohol Use Alcohol Use History: Yes Alcohol Use Frequency: Binges, Daily - Recreational Drug Use Recreational Drug Use: No - Living Situation & Occupation Living situation: Reports: with Significant Other ED ROS GENERAL - Review of Systems Review Of Systems: ROS reveals no pertinent complaints other than HPI. ED EXAM, BEHAVIORAL HEALTH - Physical Exam Exam: See Below Text/Narrative:: Gen.: Alert, distraught. Nontoxic appearing. Head is atraumatic, pupils are reactive. Facial muscles are symmetric and there is no evidence of any facial trauma. Throat is without erythema, mucous members are moist. Neck supple and there is no cervical lymphadenopathy. Lungs are clear throughout with no wheezes or crackles. Heart is regular rate and rhythm, tachycardic upon admission. Peripheral pulses +2 in the upper and lower extremities and there is no lower extremity edema. Abdomen positive bowel sounds, soft nondistended nontender. Skin is not diaphoretic. There are 4-5 superficial lacerations perpendicular to the long axis and present on the left arm which are hemostatic and clean through superficial skin. Her gait is normal and her strength is equal side to side. There is no tremor noted of her hands. Psych: She answers questions appropriately, but makes poor eye contact and her affect is very labile. She admits active suicidal ideation tonight. She does not have any psychomotor abnormalities, does not appear to be responding to any abnormal internal or external stimuli which would suggest psychosis. Speech is normal rate and volume COURSE, BEHAVIORAL HEALTH COMP - Course Vital Signs: Last Vital Signs Temp 36.6 C 02/12/19 00:05 Pulse 87 02/12/19 06:58 Resp 16 02/12/19 06:45 BP 104/71 02/12/19 06:58 Pulse Ox 99 02/12/19 06:45 Orders, Labs, Meds: Active Orders 24 hr Category Date Time Status ETHANOL BLOOD MEDICAL [CHEM] AM Lab 02/13/19 05:11 Ordered ETHANOL BLOOD MEDICAL [CHEM] AM Lab 02/14/19 05:11 Ordered Sodium Chloride 0.9% [Normal Saline] 1,000 ml Med 02/12/19 01:30 Active IV ASDIRECTED Sodium Chloride 0.9% [Normal Saline] 1,000 ml Med 02/12/19 03:00 Active IV ASDIRECTED Sodium Chloride 0.9% [Saline Flush] Med 02/12/19 00:19 Active 10 ml FLUSH ASDIRECTED PRN Saline Lock Insert [OM.PC] Routine Oth 02/12/19 00:19 Ordered Medication Orders Sodium Chloride (Normal Saline) 1,000 mls @ 999 mls/hr IV ASDIRECTED TIM Last Admin: 02/12/19 01:35 Dose: 999 mls/hr Sodium Chloride (Normal Saline) 1,000 mls @ 500 mls/hr IV ASDIRECTED TIM Last Admin: 02/12/19 06:26 Dose: 200 mls/hr Infusion: 02/12/19 06:26 Dose: 200 mls/hr Infusion: 02/12/19 03:15 Dose: 200 mls/hr Admin: 02/12/19 02:35 Dose: 500 mls/hr Sodium Chloride (Saline Flush) 10 ml FLUSH ASDIRECTED PRN PRN Reason: Keep Vein Open Last Admin: 02/12/19 01:20 Dose: 10 ml Laboratory Tests 02/12/19 02/12/19 02/12/19 Range/Units 00:35 00:35 00:35 WBC 3.7 L (4.5-12.0) X10-3/uL RBC 4.47 (3.23-5.20) x10(6)uL Hgb 13.3 (11.5-15.5) g/dL Hct 39.3 (30.0-51.3) % MCV 87.9 (80-96) fL MCH 29.7 (27.7-33.6) pg MCHC 33.8 (32.2-35.4) g/dL RDW 13.1 (11.5-15.5) % Plt Count 293 (125-369) X10(3)uL MPV 7.8 (7.4-10.4) fL Neut % (Auto) 35.7 L (46-82) % Lymph % (Auto) 48.2 H (13-37) % [place] % (Auto) 9.4 (4-12) % Eos % (Auto) 6 H (1.0-5.0) % Baso % (Auto) 1 (0-2) % Neut # (Auto) 1.3 L (1.6-8.3) # Lymph # (Auto) 1.9 (0.6-5.0) # [place] # (Auto) 0.3 (0.0-1.3) # Eos # (Auto) 0.2 (0.0-0.8) # Baso # (Auto) 0.0 (0.0-0.2) # Sodium 143 (135-145) mmol/L Potassium 3.0 L (3.5-5.3) mmol/L Chloride 105 D (100-110) mmol/L Carbon Dioxide 25 (21-32) mmol/L BUN 5 L (7-18) mg/dL Creatinine 0.7 (0.55-1.02) mg/dL Est Cr Clr Drug Dosing TNP Estimated GFR (MDRD) > 60 (>60) BUN/Creatinine Ratio 7.1 L (9-20) Glucose 142 H (80-116) mg/dL Lactic Acid 3.3 H (0.4-2.2) mmol/L Calcium 8.4 L (8.6-10.2) mg/dL Magnesium (1.8-2.5) mg/dL Total Bilirubin 0.2 (0.1-1.3) mg/dL AST 62 H (5-25) IU/L ALT 48 H (12-36) U/L Alkaline Phosphatase 102 (56-112) IU/L Total Protein 7.5 (6.0-8.0) g/dL Albumin 3.5 (3.5-5.2) g/dL Globulin 4.0 g/dL Albumin/Globulin Ratio 0.9 HCG, Quant (<5) mIU/mL Salicylates < 2.8 L (<2.8) mg/dL Urine Opiates Screen (NEGATIVE) Ur Oxycodone Screen (NEGATIVE) Ur Propoxyphene Screen (NEGATIVE) Acetaminophen < 2 L (<2) ug/mL Ur Barbituates Screen (NEGATIVE) Ur Tricyclics Screen (NEGATIVE) Ur Phencyclidine Scrn (NEGATIVE) Ur Amphetamine Screen (NEGATIVE) Urine MDMA Screen (NEGATIVE) U Benzodiazepines Scrn (NEGATIVE) U Cocaine Metab Screen (NEGATIVE) U Marijuana (THC) Screen (NEGATIVE) Ethyl Alcohol (<0.03) % 02/12/19 02/12/19 02/12/19 Range/Units 00:35 00:35 01:09 WBC (4.5-12.0) X10-3/uL RBC (3.23-5.20) x10(6)uL Hgb (11.5-15.5) g/dL Hct (30.0-51.3) % MCV (80-96) fL MCH (27.7-33.6) pg MCHC (32.2-35.4) g/dL RDW (11.5-15.5) % Plt Count (125-369) X10(3)uL MPV (7.4-10.4) fL Neut % (Auto) (46-82) % Lymph % (Auto) (13-37) % [place] % (Auto) (4-12) % Eos % (Auto) (1.0-5.0) % Baso % (Auto) (0-2) % Neut # (Auto) (1.6-8.3) # Lymph # (Auto) (0.6-5.0) # [place] # (Auto) (0.0-1.3) # Eos # (Auto) (0.0-0.8) # Baso # (Auto) (0.0-0.2) # Sodium (135-145) mmol/L Potassium (3.5-5.3) mmol/L Chloride (100-110) mmol/L Carbon Dioxide (21-32) mmol/L BUN (7-18) mg/dL Creatinine (0.55-1.02) mg/dL Est Cr Clr Drug Dosing Estimated GFR (MDRD) (>60) BUN/Creatinine Ratio (9-20) Glucose (80-116) mg/dL Lactic Acid (0.4-2.2) mmol/L Calcium (8.6-10.2) mg/dL Magnesium 2.0 (1.8-2.5) mg/dL Total Bilirubin (0.1-1.3) mg/dL AST (5-25) IU/L ALT (12-36) U/L Alkaline Phosphatase (56-112) IU/L Total Protein (6.0-8.0) g/dL Albumin (3.5-5.2) g/dL Globulin g/dL Albumin/Globulin Ratio HCG, Quant < 5 L (<5) mIU/mL Salicylates (<2.8) mg/dL Urine Opiates Screen Negative (NEGATIVE) Ur Oxycodone Screen Negative (NEGATIVE) Ur Propoxyphene Screen Negative (NEGATIVE) Acetaminophen (<2) ug/mL Ur Barbituates Screen Negative (NEGATIVE) Ur Tricyclics Screen Negative (NEGATIVE) Ur Phencyclidine Scrn Negative (NEGATIVE) Ur Amphetamine Screen Negative (NEGATIVE) Urine MDMA Screen Negative (NEGATIVE) U Benzodiazepines Scrn Negative (NEGATIVE) U Cocaine Metab Screen Negative (NEGATIVE) U Marijuana (THC) Screen Negative (NEGATIVE) Ethyl Alcohol 0.39 H* (<0.03) % 02/12/19 02/12/19 02/12/19 Range/Units 03:30 07:10 07:10 WBC (4.5-12.0) X10-3/uL RBC (3.23-5.20) x10(6)uL Hgb (11.5-15.5) g/dL Hct (30.0-51.3) % MCV (80-96) fL MCH (27.7-33.6) pg MCHC (32.2-35.4) g/dL RDW (11.5-15.5) % Plt Count (125-369) X10(3)uL MPV (7.4-10.4) fL Neut % (Auto) (46-82) % Lymph % (Auto) (13-37) % [place] % (Auto) (4-12) % Eos % (Auto) (1.0-5.0) % Baso % (Auto) (0-2) % Neut # (Auto) (1.6-8.3) # Lymph # (Auto) (0.6-5.0) # [place] # (Auto) (0.0-1.3) # Eos # (Auto) (0.0-0.8) # Baso # (Auto) (0.0-0.2) # Sodium (135-145) mmol/L Potassium 4.2 D (3.5-5.3) mmol/L Chloride (100-110) mmol/L Carbon Dioxide (21-32) mmol/L BUN (7-18) mg/dL Creatinine (0.55-1.02) mg/dL Est Cr Clr Drug Dosing Estimated GFR (MDRD) (>60) BUN/Creatinine Ratio (9-20) Glucose (80-116) mg/dL Lactic Acid 1.9 (0.4-2.2) mmol/L Calcium (8.6-10.2) mg/dL Magnesium (1.8-2.5) mg/dL Total Bilirubin (0.1-1.3) mg/dL AST (5-25) IU/L ALT (12-36) U/L Alkaline Phosphatase (56-112) IU/L Total Protein (6.0-8.0) g/dL Albumin (3.5-5.2) g/dL Globulin g/dL Albumin/Globulin Ratio HCG, Quant (<5) mIU/mL Salicylates (<2.8) mg/dL Urine Opiates Screen (NEGATIVE) Ur Oxycodone Screen (NEGATIVE) Ur Propoxyphene Screen (NEGATIVE) Acetaminophen (<2) ug/mL Ur Barbituates Screen (NEGATIVE) Ur Tricyclics Screen (NEGATIVE) Ur Phencyclidine Scrn (NEGATIVE) Ur Amphetamine Screen (NEGATIVE) Urine MDMA Screen (NEGATIVE) U Benzodiazepines Scrn (NEGATIVE) U Cocaine Metab Screen (NEGATIVE) U Marijuana (THC) Screen (NEGATIVE) Ethyl Alcohol 0.24 H* (<0.03) % Medications Generic Name Dose Route Start Last Admin Trade Name Freq PRN Reason Stop Dose Admin Sodium Chloride 1,000 mls @ 999 mls/hr 02/12/19 01:30 02/12/19 01:35 Normal Saline IV 999 mls/hr ASDIRECTED TIM Administration Sodium Chloride 1,000 mls @ 500 mls/hr 02/12/19 03:00 02/12/19 06:26 Normal Saline IV 200 mls/hr ASDIRECTED TIM Administration Sodium Chloride 10 ml 02/12/19 00:19 02/12/19 01:20 Saline Flush FLUSH 10 ml ASDIRECTED PRN Administration Keep Vein Open Discontinued Medications Generic Name Dose Route Start Last Admin Trade Name Christiano PRN Reason Stop Dose Admin Hydroxyzine Pamoate 50 mg 02/12/19 11:15 02/12/19 11:25 Vistaril PO 50 mg ONETIME PRN Administration Anxiety Potassium Chloride 20 meq/ 100 mls @ 50 mls/hr 02/12/19 01:34 02/12/19 03:14 Premix IV 02/12/19 03:33 50 mls/hr ONETIME ONE Administration Metoprolol Tartrate 5 mg 02/12/19 01:09 02/12/19 01:16 Lopressor IVPUSH 02/12/19 01:10 5 mg ONETIME ONE Administration Metoprolol Tartrate 25 mg 02/12/19 07:00 02/12/19 06:58 Lopressor PO 02/12/19 07:01 25 mg ONETIME ONE Administration Ondansetron HCl 4 mg 02/12/19 02:21 02/12/19 02:52 Zofran IVPUSH 02/12/19 02:22 4 mg ONETIME ONE Administration Potassium Chloride 20 meq 02/12/19 02:21 02/12/19 03:26 Klor-Con M20 PO 02/12/19 02:22 20 meq ONETIME ONE Administration Thiamine HCl 100 mg 02/12/19 02:22 02/12/19 03:26 Vitamin B-1 PO 02/12/19 02:23 100 mg ONETIME ONE Administration Re-Assessment/Re-Exam: uneventful overnight. Patient slept, no signs withdrawal, hemodynamically stable. repeat K within normal limits ETOH 0.24 will send information to Leondeneen Coughlin, nursing to check availability Medical Clearance: 02/12/19 13:45 patient electrolytes normalized. ETOH significantly decreased at last check. Has not show physiologic signs of withdrawal. Discharge vs Psych Eval/Treatment:: 02/12/19 d/c to [facility] voluntary admission sister to give ride up there Departure - Departure Time of Disposition: 13:15 Disposition: Home, Self-Care 01 Condition: Undetermined Clinical Impression: Self-harm, ETOH abuse, Anxiety, Depression with suicidal ideation - Discharge Information *PRESCRIPTION DRUG MONITORING PROGRAM REVIEWED*: Not Applicable *COPY OF PRESCRIPTION DRUG MONITORING REPORT IN PATIENT GARRETT: Not Applicable Referrals: Casimiro Andujar MD [Primary Care Provider] - - My Orders Last 24 Hours: My Active Orders 02/12/19 00:19 Sodium Chloride 0.9% [Saline Flush] 10 ml FLUSH ASDIRECTED PRN Saline Lock Insert [OM.PC] Routine 02/12/19 01:30 Sodium Chloride 0.9% [Normal Saline] 1,000 ml IV ASDIRECTED 02/12/19 03:00 Sodium Chloride 0.9% [Normal Saline] 1,000 ml IV ASDIRECTED 02/13/19 05:11 ETHANOL BLOOD MEDICAL [CHEM] AM 02/14/19 05:11 ETHANOL BLOOD MEDICAL [CHEM] AM - Assessment/Plan Last 24 Hours: My Active Orders 02/12/19 00:19 Sodium Chloride 0.9% [Saline Flush] 10 ml FLUSH ASDIRECTED PRN Saline Lock Insert [OM.PC] Routine 02/12/19 01:30 Sodium Chloride 0.9% [Normal Saline] 1,000 ml IV ASDIRECTED 02/12/19 03:00 Sodium Chloride 0.9% [Normal Saline] 1,000 ml IV ASDIRECTED 02/13/19 05:11 ETHANOL BLOOD MEDICAL [CHEM] AM 02/14/19 05:11 ETHANOL BLOOD MEDICAL [CHEM] AM
[2019-02-12] MEDS ORDERED: Metoprolol Tartrate 25 MG Tab PO ONE (07:00)
[2019-02-12 14:10] VITALS: BP 108/71; PULSE 78
== END 2019-02-12 13:35 ==
LOC: FB.ED 00:04
DX: S41.112A Laceration without foreign body of left upper arm, initial encounter (principal); F32.9 Major depressive disorder, single episode, unspecified; F41.9 Anxiety disorder, unspecified; F10.10 Alcohol abuse, uncomplicated; Y90.1 Blood alcohol level of 20-39 mg/100 ml; Z79.899 Other long term (current) drug therapy; J45.909 Unspecified asthma, uncomplicated; F17.200 Nicotine dependence, unspecified, uncomplicated; X78.9XXA Intentional self-harm by unspecified sharp object, initial encounter
CPT/HCPCS: 36415; 80053; 80305; 80320; 80329; 83605; 83735; 84132; 84702; 85025; 96361; 96365; 96366; 96375; 99285; A9270; J2405; J3480; J3490; J7030; G0480

== ENCOUNTER 2022-11-25 15:31 | Emergency (ER) | payer SELFPAY ==
[2022-11-25] MEDS ORDERED: LORazepam 2 MG/ML SDV IM STA (15:36)
[2022-11-25] MEDS ORDERED: LORazepam 2 MG/ML SDV IVPUSH STA (15:55)
[2022-11-25 16:04] LABS: BASOPHILS PERCENT AUTO 0.3 % (0.2-1.5); EOSINOPHILS PERCENT AUTO 0.2 % (0.6-8.1); HEMATOCRIT 38.2 % (34.2-48.2); LYMPHOCYTES ABSOLUTE AUTO 0.5 x10-3/uL (1.0-4.4); LYMPHOCYTES PERCENT AUTO 6.1 % (18.4-52.1); MEAN CORPUSCULAR HEMOGLOBIN 29.6 pg (23.9-33.9); MEAN CORPUSCULAR HGB CONC 33.9 g/dL (31.9-34.8); MEAN CORPUSCULAR VOLUME 87.2 fL (76.7-100.5); MEAN PLATELET VOLUME 7.4 fL (7.1-12.4); MONOCYTES ABSOLUTE AUTO 0.5 x10-3/uL (0.3-1.0); MONOCYTES PERCENT AUTO 6.6 % (4.4-15.7); NEUTROPHILS ABSOLUTE AUTO 7.1 x10-3/uL (1.5-6.3); NEUTROPHILS PERCENT AUTO 86.8 % (30.8-76.2); PLATELET COUNT,PLT 332 x10(3)uL (151-488); RED BLOOD CELL COUNT 4.38 x10(6)uL (3.60-5.20); RED CELL DISTRIBUTION WIDTH 13.7 % (12.3-16.5); WHITE BLOOD CELL COUNT,WBC 8.1 x10-3/uL (3.0-10.3)
[2022-11-25 16:07] LABS: BLOOD UREA NITROGEN,BUN 9 mg/dL (7-18); BUN/CREATININE RATIO 11.3 (9-20); CALCIUM 8.6 mg/dL (8.6-10.2); CARBON DIOXIDE,CO2 21 mmol/L (21-32); CHLORIDE,CL 101 mmol/L (100-110); CREATININE 0.8 mg/dL (0.55-1.02); ESTIMATED GFR 101 mL/min (>60); GLUCOSE RANDOM 109 mg/dL (80-116); POTASSIUM,K 3.4 mmol/L (3.5-5.3); SODIUM,NA 137 mmol/L (135-145)
[2022-11-25] MEDS ORDERED: Potassium Chloride 20 MEQ Tab.ER PO STA (16:09)
[2022-11-25 16:13] LABS: ALANINE AMINOTRANSFERASE,ALT 13 U/L (12-36); ALBUMIN 3.7 g/dL (3.5-5.2); ALKALINE PHOSPHATASE 102 IU/L (56-112); ASPARTATE AMNIOTRANSFERASE,AST 16 IU/L (5-25); BILIRUBIN TOTAL 0.6 mg/dL (0.1-1.3); PROTEIN TOTAL,TP 7.4 g/dL (6.0-8.0)
[2022-11-25 17:40] VITALS: BP 139/79; PULSE 101
== END 2022-11-25 17:00 | disposition home or self-care (01) ==
LOC: FB.ED 15:31
DX: F41.0 Panic disorder [episodic paroxysmal anxiety] (principal); E87.6 Hypokalemia; J45.909 Unspecified asthma, uncomplicated; Z79.899 Other long term (current) drug therapy
CPT/HCPCS: 36415; 80053; 84484; 85025; 93005; 96374; 99285; A9270; J2060

== ENCOUNTER 2024-07-22 22:55 | Emergency (ER) | payer MEDICAID ==
[2024-07-22] MEDS: Ondansetron 4 MG Tab.DIS PO ONE (23:29)
[2024-07-23 00:09] VITALS: BP 137/90; PULSE 76
== END 2024-07-23 00:20 | disposition home or self-care (01) ==
LOC: FB.ED 22:55
DX: K59.00 Constipation, unspecified (principal); Z79.899 Other long term (current) drug therapy; Z90.49 Acquired absence of other specified parts of digestive tract
CPT/HCPCS: 74019; 99284; Q0162